=== PATIENT | male | born 1955 | race Hispanic/Latino ===

== ENCOUNTER 2019-12-19 11:28 | Emergency (ER) | payer BC, OTHER ==
[~2019-12-19] VITALS: Ht 167.6 cm; Wt 136.1 kg
--- OUTSIDE RECORDS SUMMARY | 2019-12-19 11:33 | XMS REPORT ---
Author Author [facility] Organization [facility] Address Unknown Phone Unavailable Care Team Providers Care Hog Scalder Name Role Phone Unavailable Unavailable Payers Payer Name Policy Type Policy Number Effective Date Expiration D ate Problems This patient has no known problems. Allergies, Adverse Reactions, Alerts Allergy Name Allergy Type Status Severity Reaction(s) Onset Date Inacti ve Date Treating Clinician Comments lisinopril DA Active U 2018-04-26 00:00:00 hydrochlorothiazide DA Active U 2018-04-26 00:00:00 simvastatin DA Active U 2018-04-26 00:00:00 atorvastatin DA Active U 2018-04-26 00:00:00 pioglitazone DA Active U 2018-04-26 00:00:00 No Known Allergies DA Active U 2012-11-07 00:00:00 Medications This patient has no known medications. Results Test Description Test Time Test Comments Text Results Atomic Results Result Comments GLUBED 2018-11-17 12:38:00 GLUBED (test code = GLUBED) 272 mg/dL 74-106 Perf ormed by certified tank wagon operator at [facility] [id number] 06:17:00* Test Item Value Reference Range Comments GLUBED (test code = GLUBED) 206 mg/dL 74-106 Perf ormed by certified tank wagon operator at [facility] [id number] 20:53:00* Test Item Value Reference Range Comments GLUBED (test code = GLUBED) 264 mg/dL 74-106 Perf ormed by certified tank wagon operator at [facility] [id number] 16:35:00* Test Item Value Reference Range Comments GLUBED (test code = GLUBED) 284 mg/dL 74-106 Perf ormed by certified tank wagon operator at [facility] [id number] 11:36:00* Test Item Value Reference Range Comments GLUBED (test code = GLUBED) 242 mg/dL 74-106 Perf ormed by certified tank wagon operator at [facility] [id number] 04:58:00* Test Item Value Reference Range Comments GLUBED (test code = GLUBED) 182 mg/dL 74-106 Perf ormed by certified tank wagon operator at [facility] [id number] 20:46:00* Test Item Value Reference Range Comments GLUBED (test code = GLUBED) 234 mg/dL 74-106 Perf ormed by certified tank wagon operator at [facility] [id number] 17:13:00* Test Item Value Reference Range Comments GLUBED (test code = GLUBED) 227 mg/dL 74-106 Perf ormed by certified tank wagon operator at [facility] [id number] 12:56:00* Test Item Value Reference Range Comments GLUBED (test code = GLUBED) 211 mg/dL 74-106 Perf ormed by certified tank wagon operator at [facility] [id number] 05:04:00* Test Item Value Reference Range Comments GLUBED (test code = GLUBED) 144 mg/dL 74-106 Perf ormed by certified tank wagon operator at [facility] [id number] 21:43:00* Test Item Value Reference Range Comments GLUBED (test code = GLUBED) 223 mg/dL 74-106 Perf ormed by certified tank wagon operator at [facility] [id number] 17:17:00* Test Item Value Reference Range Comments GLUBED (test code = GLUBED) 183 mg/dL 74-106 Perf ormed by certified tank wagon operator at [facility] [id number] 12:40:00* Test Item Value Reference Range Comments GLUBED (test code = GLUBED) 208 mg/dL 74-106 Perf ormed by certified tank wagon operator at [facility] [id number] 05:10:00* Test Item Value Reference Range Comments GLUBED (test code = GLUBED) 172 mg/dL 74-106 Perf ormed by certified tank wagon operator at [facility] [id number] 23:33:00* Test Item Value Reference Range Comments GLUBED (test code = GLUBED) 204 mg/dL 74-106 Perf ormed by certified tank wagon operator at [facility] [id number] 17:30:00* Test Item Value Reference Range Comments GLUBED (test code = GLUBED) 244 mg/dL 74-106 Perf ormed by certified tank wagon operator at [facility] [id number] 12:29:00* Test Item Value Reference Range Comments GLUBED (test code = GLUBED) 205 mg/dL 74-106 Perf ormed by certified tank wagon operator at [facility] [id number] 05:28:00* Test Item Value Reference Range Comments GLUBED (test code = GLUBED) 185 mg/dL 74-106 Perf ormed by certified tank wagon operator at [facility] BASIC METABOLIC [id number] 05:04:00* Test Item Value Reference Range Comments SODIUM (test code = NA) 141 mmol/L 136-145 POTASSIUM (test code = K) 3.9 mmol/L 3.5-5.1 CHLORIDE (test code = CL) 101.0 mmol/L 98-107 CARBON DIOXIDE (test code = CO2) 35.0 mmol/L 21-32 ANION GAP (test code = GAP) 8.9 10-20 GLUCOSE (test code = GLU) 221 mg/dL 74-106 BLOOD UREA NITROGEN (test code = BUN) 17 mg/dL 7-18 GLOMERULAR FILTRATION RATE (test code = GFR) 55 mL/min >=6 0 Estimated GFR by using Modified MDRD formula.Chronic kidney disease is defined as either kidney damageor GFR <60 mL/min/1.73 m2 for >3 months. CREATININE (test code = CREAT) 1.30 mg/dL 0.7-1.3 BUN/CREATININE RATIO (test code = BUN/CREA) 13.1 10-2 0 CALCIUM (test code = CA) 8.5 mg/dL 8.5-10.1 BASIC METABOLIC [id number] 04:55:00* Test Item Value Reference Range Comments SODIUM (test code = NA) 141 mmol/L 136-145 POTASSIUM (test code = K) 3.9 mmol/L 3.5-5.1 CHLORIDE (test code = CL) 101.0 mmol/L 98-107 CARBON DIOXIDE (test code = CO2) mmol/L 21-32 ANION GAP (test code = GAP) 10-20 GLUCOSE (test code = GLU) mg/dL 74-106 BLOOD UREA NITROGEN (test code = BUN) mg/dL 7-18 GLOMERULAR FILTRATION RATE (test code = GFR) mL/min >=6 0 CREATININE (test code = CREAT) mg/dL 0.7-1.3 BUN/CREATININE RATIO (test code = BUN/CREA) 10-2 0 CALCIUM (test code = CA) mg/dL 8.5-10.1 [id number] 20:20:00* Test Item Value Reference Range Comments GLUBED (test code = GLUBED) 219 mg/dL 74-106 Perf ormed by certified tank wagon operator at [facility] [id number] 15:36:00* Test Item Value Reference Range Comments GLUBED (test code = GLUBED) 193 mg/dL 74-106 Perf ormed by certified tank wagon operator at [facility] [id number] 12:24:00* Test Item Value Reference Range Comments GLUBED (test code = GLUBED) 171 mg/dL 74-106 Perf ormed by certified tank wagon operator at [facility] CBC W/AUTO [id number] 08:01:00* Test Item Value Reference Range Comments WHITE BLOOD CELL (test code = WBC) 8.4 K/mm3 4.5-12.5 RED BLOOD CELL (test code = RBC) 4.58 mill/mm3 4.0-5.8 HEMOGLOBIN (test code = HGB) 10.8 gram/dL 13.0-17.5 HEMATOCRIT (test code = HCT) 40.5 % 42.0-52.0 MEAN CELL VOLUME (test code = MCV) 88.4 fL 80-98 MEAN CELL HGB (test code = MCH) 23.6 picogram 27.0-33.0 MEAN CELL HGB CONCETRATION (test code = MCHC) 26.7 gram/dL 33 .0-36.0 RED CELL DISTRIBUTION WIDTH (test code = RDW) 18.6 % 11 .6-16.2 RED CELL DISTRIBUTION WIDTH SD (test code = RDW-SD) 59.5 fL 37.0-51.0 PLATELET COUNT (test code = PLT) 224 K/mm3 150-450 MEAN PLATELET VOLUME (test code = MPV) 10.2 fL 6.7-11.0 NEUTROPHIL % (test code = NT%) 59.4 % 39.0-69.0 IMMATURE GRANULOCYTE % (test code = IG%) 0.4 % 0.0-5.0 LYMPHOCYTE % (test code = LY%) 24.5 % 25.0-55.0 MONOCYTE % (test code = MO%) 9.8 % 0.0-10.0 EOSINOPHIL % (test code = EO%) 5.5 % 0.0-5.0 BASOPHIL % (test code = BA%) 0.4 % 0.0-1.0 NUCLEATED RBC % (test code = NRBC%) 0.0 % 0-0 NEUTROPHIL # (test code = NT#) 5.02 K/mm3 1.8-7.7 IMMATURE GRANULOCYTE # (test code = IG#) 0.03 x10 3/uL 0-0.03 LYMPHOCYTE # (test code = LY#) 2.07 K/mm3 1.0-5.0 MONOCYTE # (test code = MO#) 0.83 K/mm3 0-0.8 EOSINOPHIL # (test code = EO#) 0.46 K/mm3 0.0-0.5 BASOPHIL # (test code = BA#) 0.03 K/mm3 0.0-0.2 NUCLEATED RBC # (test code = NRBC#) 0.00 K/mm3 0.0-0.1 MANUAL DIFF REQUIRED (test code = MDIFF) NO, ONLY SCAN NEEDED DIFFERENTIAL [id number] 08:01:00* Test Item Value Reference Range Comments STAIN ACCEPTABILITY (test code = STN ACCEPTABLE) STAIN ACCEPTABL E ANISOCYTOSIS (test code = ANISO) 1+ PLATELET ESTIMATE (test code = PLTEST) ADEQUATE PLATELET MORPHOLOGY (test code = PLTMORPH) CLUMPING PRESENT [id number] 07:21:00* Test Item Value Reference Range Comments PHOSPHORUS (test code = PHOS) 3.2 mg/dL 2.5-4.9 [id number] 07:21:00* Test Item Value Reference Range Comments MAGNESIUM (test code = MAG) 1.9 mg/dL 1.8-2.4 BASIC METABOLIC [id number] 07:21:00* Test Item Value Reference Range Comments SODIUM (test code = NA) 142 mmol/L 136-145 POTASSIUM (test code = K) 3.9 mmol/L 3.5-5.1 CHLORIDE (test code = CL) 102.0 mmol/L 98-107 CARBON DIOXIDE (test code = CO2) 32.0 mmol/L 21-32 ANION GAP (test code = GAP) 11.9 10-20 GLUCOSE (test code = GLU) 129 mg/dL 74-106 BLOOD UREA NITROGEN (test code = BUN) 16 mg/dL 7-18 GLOMERULAR FILTRATION RATE (test code = GFR) > 60 mL/min >=6 0 Estimated GFR by using Modified MDRD formula.Chronic kidney disease is defined as either kidney damageor GFR <60 mL/min/1.73 m2 for >3 months. CREATININE (test code = CREAT) 1.20 mg/dL 0.7-1.3 BUN/CREATININE RATIO (test code = BUN/CREA) 13.3 10-2 0 CALCIUM (test code = CA) 8.3 mg/dL 8.5-10.1 [id number] 07:17:00* Test Item Value Reference Range Comments PHOSPHORUS (test code = PHOS) mg/dL 2.5-4.9 [id number] 07:17:00* Test Item Value Reference Range Comments MAGNESIUM (test code = MAG) 1.9 mg/dL 1.8-2.4 BASIC METABOLIC [id number] 07:13:00* Test Item Value Reference Range Comments SODIUM (test code = NA) 142 mmol/L 136-145 POTASSIUM (test code = K) 3.9 mmol/L 3.5-5.1 CHLORIDE (test code = CL) 102.0 mmol/L 98-107 CARBON DIOXIDE (test code = CO2) mmol/L 21-32 ANION GAP (test code = GAP) 10-20 GLUCOSE (test code = GLU) mg/dL 74-106 BLOOD UREA NITROGEN (test code = BUN) mg/dL 7-18 GLOMERULAR FILTRATION RATE (test code = GFR) mL/min >=6 0 CREATININE (test code = CREAT) mg/dL 0.7-1.3 BUN/CREATININE RATIO (test code = BUN/CREA) 10-2 0 CALCIUM (test code = CA) mg/dL 8.5-10.1 CBC W/AUTO [id number] 06:54:00* Test Item Value Reference Range Comments WHITE BLOOD CELL (test code = WBC) 8.4 K/mm3 4.5-12.5 RED BLOOD CELL (test code = RBC) 4.58 mill/mm3 4.0-5.8 HEMOGLOBIN (test code = HGB) 10.8 gram/dL 13.0-17.5 HEMATOCRIT (test code = HCT) 40.5 % 42.0-52.0 MEAN CELL VOLUME (test code = MCV) 88.4 fL 80-98 MEAN CELL HGB (test code = MCH) 23.6 picogram 27.0-33.0 MEAN CELL HGB CONCETRATION (test code = MCHC) 26.7 gram/dL 33 .0-36.0 RED CELL DISTRIBUTION WIDTH (test code = RDW) 18.6 % 11 .6-16.2 RED CELL DISTRIBUTION WIDTH SD (test code = RDW-SD) 59.5 fL 37.0-51.0 PLATELET COUNT (test code = PLT) 224 K/mm3 150-450 MEAN PLATELET VOLUME (test code = MPV) 10.2 fL 6.7-11.0 NEUTROPHIL % (test code = NT%) 59.4 % 39.0-69.0 IMMATURE GRANULOCYTE % (test code = IG%) 0.4 % 0.0-5.0 LYMPHOCYTE % (test code = LY%) 24.5 % 25.0-55.0 MONOCYTE % (test code = MO%) 9.8 % 0.0-10.0 EOSINOPHIL % (test code = EO%) 5.5 % 0.0-5.0 BASOPHIL % (test code = BA%) 0.4 % 0.0-1.0 NUCLEATED RBC % (test code = NRBC%) 0.0 % 0-0 NEUTROPHIL # (test code = NT#) 5.02 K/mm3 1.8-7.7 IMMATURE GRANULOCYTE # (test code = IG#) 0.03 x10 3/uL 0-0.03 LYMPHOCYTE # (test code = LY#) 2.07 K/mm3 1.0-5.0 MONOCYTE # (test code = MO#) 0.83 K/mm3 0-0.8 EOSINOPHIL # (test code = EO#) 0.46 K/mm3 0.0-0.5 BASOPHIL # (test code = BA#) 0.03 K/mm3 0.0-0.2 NUCLEATED RBC # (test code = NRBC#) 0.00 K/mm3 0.0-0.1 MANUAL DIFF REQUIRED (test code = MDIFF) NO, ONLY SCAN NEEDED DIFFERENTIAL [id number] 06:54:00* Test Item Value Reference Range Comments STAIN ACCEPTABILITY (test code = STN ACCEPTABLE) CABOT RINGS (test code = CAB) MORPHOLOGY COMMENT (test code = MOC) PLATELET ESTIMATE (test code = PLTEST) PLATELET MORPHOLOGY (test code = PLTMORPH) CBC W/AUTO [id number] 06:54:00* Test Item Value Reference Range Comments WHITE BLOOD CELL (test code = WBC) 8.4 K/mm3 4.5-12.5 RED BLOOD CELL (test code = RBC) 4.58 mill/mm3 4.0-5.8 HEMOGLOBIN (test code = HGB) 10.8 gram/dL 13.0-17.5 HEMATOCRIT (test code = HCT) 40.5 % 42.0-52.0 MEAN CELL VOLUME (test code = MCV) 88.4 fL 80-98 MEAN CELL HGB (test code = MCH) 23.6 picogram 27.0-33.0 MEAN CELL HGB CONCETRATION (test code = MCHC) 26.7 gram/dL 33 .0-36.0 RED CELL DISTRIBUTION WIDTH (test code = RDW) 18.6 % 11 .6-16.2 RED CELL DISTRIBUTION WIDTH SD (test code = RDW-SD) 59.5 fL 37.0-51.0 PLATELET COUNT (test code = PLT) 224 K/mm3 150-450 MEAN PLATELET VOLUME (test code = MPV) 10.2 fL 6.7-11.0 NEUTROPHIL % (test code = NT%) 59.4 % 39.0-69.0 IMMATURE GRANULOCYTE % (test code = IG%) 0.4 % 0.0-5.0 LYMPHOCYTE % (test code = LY%) 24.5 % 25.0-55.0 MONOCYTE % (test code = MO%) 9.8 % 0.0-10.0 EOSINOPHIL % (test code = EO%) 5.5 % 0.0-5.0 BASOPHIL % (test code = BA%) 0.4 % 0.0-1.0 NUCLEATED RBC % (test code = NRBC%) 0.0 % 0-0 NEUTROPHIL # (test code = NT#) 5.02 K/mm3 1.8-7.7 IMMATURE GRANULOCYTE # (test code = IG#) 0.03 x10 3/uL 0-0.03 LYMPHOCYTE # (test code = LY#) 2.07 K/mm3 1.0-5.0 MONOCYTE # (test code = MO#) 0.83 K/mm3 0-0.8 EOSINOPHIL # (test code = EO#) 0.46 K/mm3 0.0-0.5 BASOPHIL # (test code = BA#) 0.03 K/mm3 0.0-0.2 NUCLEATED RBC # (test code = NRBC#) 0.00 K/mm3 0.0-0.1 MANUAL DIFF REQUIRED (test code = MDIFF) NO, ONLY SCAN NEEDED DIFFERENTIAL [id number] 06:54:00* Test Item Value Reference Range Comments STAIN ACCEPTABILITY (test code = STN ACCEPTABLE) CABOT RINGS (test code = CAB) MORPHOLOGY COMMENT (test code = MOC) PLATELET ESTIMATE (test code = PLTEST) PLATELET MORPHOLOGY (test code = PLTMORPH) CBC W/AUTO [id number] 06:54:00* Test Item Value Reference Range Comments WHITE BLOOD CELL (test code = WBC) 8.4 K/mm3 4.5-12.5 RED BLOOD CELL (test code = RBC) 4.58 mill/mm3 4.0-5.8 HEMOGLOBIN (test code = HGB) 10.8 gram/dL 13.0-17.5 HEMATOCRIT (test code = HCT) 40.5 % 42.0-52.0 MEAN CELL VOLUME (test code = MCV) 88.4 fL 80-98 MEAN CELL HGB (test code = MCH) 23.6 picogram 27.0-33.0 MEAN CELL HGB CONCETRATION (test code = MCHC) 26.7 gram/dL 33 .0-36.0 RED CELL DISTRIBUTION WIDTH (test code = RDW) 18.6 % 11 .6-16.2 RED CELL DISTRIBUTION WIDTH SD (test code = RDW-SD) 59.5 fL 37.0-51.0 PLATELET COUNT (test code = PLT) 224 K/mm3 150-450 MEAN PLATELET VOLUME (test code = MPV) 10.2 fL 6.7-11.0 NEUTROPHIL % (test code = NT%) 59.4 % 39.0-69.0 IMMATURE GRANULOCYTE % (test code = IG%) 0.4 % 0.0-5.0 LYMPHOCYTE % (test code = LY%) 24.5 % 25.0-55.0 MONOCYTE % (test code = MO%) 9.8 % 0.0-10.0 EOSINOPHIL % (test code = EO%) 5.5 % 0.0-5.0 BASOPHIL % (test code = BA%) 0.4 % 0.0-1.0 NUCLEATED RBC % (test code = NRBC%) 0.0 % 0-0 NEUTROPHIL # (test code = NT#) 5.02 K/mm3 1.8-7.7 IMMATURE GRANULOCYTE # (test code = IG#) 0.03 x10 3/uL 0-0.03 LYMPHOCYTE # (test code = LY#) 2.07 K/mm3 1.0-5.0 MONOCYTE # (test code = MO#) 0.83 K/mm3 0-0.8 EOSINOPHIL # (test code = EO#) 0.46 K/mm3 0.0-0.5 BASOPHIL # (test code = BA#) 0.03 K/mm3 0.0-0.2 NUCLEATED RBC # (test code = NRBC#) 0.00 K/mm3 0.0-0.1 MANUAL DIFF REQUIRED (test code = MDIFF) NO, ONLY SCAN NEEDED DIFFERENTIAL [id number] 06:54:00* Test Item Value Reference Range Comments STAIN ACCEPTABILITY (test code = STN ACCEPTABLE) MORPHOLOGY COMMENT (test code = MOC) PLATELET ESTIMATE (test code = PLTEST) PLATELET MORPHOLOGY (test code = PLTMORPH) CBC W/AUTO [id number] 06:54:00* Test Item Value Reference Range Comments WHITE BLOOD CELL (test code = WBC) 8.4 K/mm3 4.5-12.5 RED BLOOD CELL (test code = RBC) 4.58 mill/mm3 4.0-5.8 HEMOGLOBIN (test code = HGB) 10.8 gram/dL 13.0-17.5 HEMATOCRIT (test code = HCT) 40.5 % 42.0-52.0 MEAN CELL VOLUME (test code = MCV) 88.4 fL 80-98 MEAN CELL HGB (test code = MCH) 23.6 picogram 27.0-33.0 MEAN CELL HGB CONCETRATION (test code = MCHC) 26.7 gram/dL 33 .0-36.0 RED CELL DISTRIBUTION WIDTH (test code = RDW) 18.6 % 11 .6-16.2 RED CELL DISTRIBUTION WIDTH SD (test code = RDW-SD) 59.5 fL 37.0-51.0 PLATELET COUNT (test code = PLT) 224 K/mm3 150-450 MEAN PLATELET VOLUME (test code = MPV) 10.2 fL 6.7-11.0 NEUTROPHIL % (test code = NT%) 59.4 % 39.0-69.0 IMMATURE GRANULOCYTE % (test code = IG%) 0.4 % 0.0-5.0 LYMPHOCYTE % (test code = LY%) 24.5 % 25.0-55.0 MONOCYTE % (test code = MO%) 9.8 % 0.0-10.0 EOSINOPHIL % (test code = EO%) 5.5 % 0.0-5.0 BASOPHIL % (test code = BA%) 0.4 % 0.0-1.0 NUCLEATED RBC % (test code = NRBC%) 0.0 % 0-0 NEUTROPHIL # (test code = NT#) 5.02 K/mm3 1.8-7.7 IMMATURE GRANULOCYTE # (test code = IG#) 0.03 x10 3/uL 0-0.03 LYMPHOCYTE # (test code = LY#) 2.07 K/mm3 1.0-5.0 MONOCYTE # (test code = MO#) 0.83 K/mm3 0-0.8 EOSINOPHIL # (test code = EO#) 0.46 K/mm3 0.0-0.5 BASOPHIL # (test code = BA#) 0.03 K/mm3 0.0-0.2 NUCLEATED RBC # (test code = NRBC#) 0.00 K/mm3 0.0-0.1 MANUAL DIFF REQUIRED (test code = MDIFF) NO, ONLY SCAN NEEDED DIFFERENTIAL [id number] 06:54:00* Test Item Value Reference Range Comments STAIN ACCEPTABILITY (test code = STN ACCEPTABLE) CABOT RINGS (test code = CAB) MORPHOLOGY COMMENT (test code = MOC) PLATELET ESTIMATE (test code = PLTEST) PLATELET MORPHOLOGY (test code = PLTMORPH) [id number] 05:06:00* Test Item Value Reference Range Comments GLUBED (test code = GLUBED) 119 mg/dL 74-106 Perf ormed by certified tank wagon operator at [facility] [id number] 21:15:00* Test Item Value Reference Range Comments GLUBED (test code = GLUBED) 211 mg/dL 74-106 Perf ormed by certified tank wagon operator at [facility] [id number] 16:30:00* Test Item Value Reference Range Comments GLUBED (test code = GLUBED) 193 mg/dL 74-106 Perf ormed by certified tank wagon operator at [facility] [id number] 15:05:00* Test Item Value Reference Range Comments GLUBED (test code = GLUBED) 168 mg/dL 74-106 Perf ormed by certified tank wagon operator at [facility] BASIC METABOLIC [id number] 07:06:00* Test Item Value Reference Range Comments SODIUM (test code = NA) 141 mmol/L 136-145 POTASSIUM (test code = K) 3.6 mmol/L 3.5-5.1 CHLORIDE (test code = CL) 104.0 mmol/L 98-107 CARBON DIOXIDE (test code = CO2) 33.0 mmol/L 21-32 ANION GAP (test code = GAP) 7.6 10-20 GLUCOSE (test code = GLU) 131 mg/dL 74-106 BLOOD UREA NITROGEN (test code = BUN) 17 mg/dL 7-18 GLOMERULAR FILTRATION RATE (test code = GFR) > 60 mL/min >=6 0 Estimated GFR by using Modified MDRD formula.Chronic kidney disease is defined as either kidney damageor GFR <60 mL/min/1.73 m2 for >3 months. CREATININE (test code = CREAT) 1.10 mg/dL 0.7-1.3 BUN/CREATININE RATIO (test code = BUN/CREA) 15.5 10-2 0 CALCIUM (test code = CA) 8.3 mg/dL 8.5-10.1 BASIC METABOLIC [id number] 06:58:00* Test Item Value Reference Range Comments SODIUM (test code = NA) 141 mmol/L 136-145 POTASSIUM (test code = K) 3.6 mmol/L 3.5-5.1 CHLORIDE (test code = CL) 104.0 mmol/L 98-107 CARBON DIOXIDE (test code = CO2) mmol/L 21-32 ANION GAP (test code = GAP) 10-20 GLUCOSE (test code = GLU) mg/dL 74-106 BLOOD UREA NITROGEN (test code = BUN) mg/dL 7-18 GLOMERULAR FILTRATION RATE (test code = GFR) mL/min >=6 0 CREATININE (test code = CREAT) mg/dL 0.7-1.3 BUN/CREATININE RATIO (test code = BUN/CREA) 10-2 0 CALCIUM (test code = CA) mg/dL 8.5-10.1 [id number] 05:00:00* Test Item Value Reference Range Comments GLUBED (test code = GLUBED) 107 mg/dL 74-106 Perf ormed by certified tank wagon operator at [facility] [id number] 21:13:00* Test Item Value Reference Range Comments GLUBED (test code = GLUBED) 224 mg/dL 74-106 Perf ormed by certified tank wagon operator at [facility] [id number] 15:45:00* Test Item Value Reference Range Comments GLUBED (test code = GLUBED) 229 mg/dL 74-106 Perf ormed by certified tank wagon operator at [facility] [id number] 12:18:00* Test Item Value Reference Range Comments GLUBED (test code = GLUBED) 211 mg/dL 74-106 Perf ormed by certified tank wagon operator at [facility] BASIC METABOLIC [id number] 06:16:00* Test Item Value Reference Range Comments SODIUM (test code = NA) 142 mmol/L 136-145 POTASSIUM (test code = K) 3.6 mmol/L 3.5-5.1 CHLORIDE (test code = CL) 104.0 mmol/L 98-107 CARBON DIOXIDE (test code = CO2) 33.0 mmol/L 21-32 ANION GAP (test code = GAP) 8.6 10-20 GLUCOSE (test code = GLU) 132 mg/dL 74-106 BLOOD UREA NITROGEN (test code = BUN) 19 mg/dL 7-18 GLOMERULAR FILTRATION RATE (test code = GFR) > 60 mL/min >=6 0 Estimated GFR by using Modified MDRD formula.Chronic kidney disease is defined as either kidney damageor GFR <60 mL/min/1.73 m2 for >3 months. CREATININE (test code = CREAT) 1.20 mg/dL 0.7-1.3 BUN/CREATININE RATIO (test code = BUN/CREA) 15.8 10-2 0 CALCIUM (test code = CA) 8.2 mg/dL 8.5-10.1 [id number] 06:16:00* Test Item Value Reference Range Comments PHOSPHORUS (test code = PHOS) 2.7 mg/dL 2.5-4.9 [id number] 06:16:00* Test Item Value Reference Range Comments MAGNESIUM (test code = MAG) 1.9 mg/dL 1.8-2.4 BASIC METABOLIC [id number] 06:06:00* Test Item Value Reference Range Comments SODIUM (test code = NA) 142 mmol/L 136-145 POTASSIUM (test code = K) 3.6 mmol/L 3.5-5.1 CHLORIDE (test code = CL) 104.0 mmol/L 98-107 CARBON DIOXIDE (test code = CO2) mmol/L 21-32 ANION GAP (test code = GAP) 10-20 GLUCOSE (test code = GLU) mg/dL 74-106 BLOOD UREA NITROGEN (test code = BUN) mg/dL 7-18 GLOMERULAR FILTRATION RATE (test code = GFR) mL/min >=6 0 CREATININE (test code = CREAT) mg/dL 0.7-1.3 BUN/CREATININE RATIO (test code = BUN/CREA) 10-2 0 CALCIUM (test code = CA) mg/dL 8.5-10.1 [id number] 06:06:00* Test Item Value Reference Range Comments PHOSPHORUS (test code = PHOS) mg/dL 2.5-4.9 [id number] 06:06:00* Test Item Value Reference Range Comments MAGNESIUM (test code = MAG) mg/dL 1.8-2.4 [id number] 05:41:00* Test Item Value Reference Range Comments GLUBED (test code = GLUBED) 133 mg/dL 74-106 Perf ormed by certified tank wagon operator at [facility] [id number] 20:46:00* Test Item Value Reference Range Comments GLUBED (test code = GLUBED) 193 mg/dL 74-106 Perf ormed by certified tank wagon operator at [facility] [id number] 17:57:00* Test Item Value Reference Range Comments GLUBED (test code = GLUBED) 208 mg/dL 74-106 Perf ormed by certified tank wagon operator at [facility] [id number] 13:31:00* Test Item Value Reference Range Comments GLUBED (test code = GLUBED) 158 mg/dL 74-106 Perf ormed by certified tank wagon operator at [facility] [id number] 07:52:00* Test Item Value Reference Range Comments GLUBED (test code = GLUBED) 125 mg/dL 74-106 Perf ormed by certified tank wagon operator at [facility] - XR CHEST 1 [id number] 07:49:00 FAX: Roland Pinedo MD [phone] [place]: St: ADM FAX: Pacheco Hill MD FAX: Andressa Shaw NP [phone] Name: LIAT KEYES [facility] : 1955 Age/S: 63/M [address] [facility] Unit #: [id number] Loc: [address] [address] Phys: Andressa Lyn NP Acct: [id number] Dis Date: Status: ADM IN PH ONE #: [phone] Exam Date: 11/09/2018 0517 FAX #: [phone] Reason: respiratory failure EXAMS: CPT CODE: [id number] XR CHEST 1 V [id number] EXAM: Chest x- ray, one view; INFORMATION: Respiratory failure; I MPRESSION: 1. Interim extubation and removal of an NG tube. 2. The right lung base is slightly better aerated. 2. No further changes; persistent mild basilar atelectatic changes and mild cardiomegaly. at 0749 Reported and signed by: Avi Phan M.D. CC: Roland Jacobson MD; Pacheco Almazan; Andressa Lyn NP Technologist: Clare Collazo RT(R); Teresa Osborne Trnscrd Date/Time/By: 11/09/2018 (0749) : By: t.S Orig Print D/T: S: 11/09/2018 (0753) LEX HUNT 1 Signed Report CBC W/AUTO [id number] 07:25:00* Test Item Value Reference Range Comments WHITE BLOOD CELL (test code = WBC) 9.9 K/mm3 4.5-12.5 RED BLOOD CELL (test code = RBC) 4.49 mill/mm3 4.0-5.8 HEMOGLOBIN (test code = HGB) 11.0 gram/dL 13.0-17.5 HEMATOCRIT (test code = HCT) 38.9 % 42.0-52.0 MEAN CELL VOLUME (test code = MCV) 86.6 fL 80-98 MEAN CELL HGB (test code = MCH) 24.5 picogram 27.0-33.0 MEAN CELL HGB CONCETRATION (test code = MCHC) 28.3 gram/dL 33 .0-36.0 RED CELL DISTRIBUTION WIDTH (test code = RDW) 19.1 % 11 .6-16.2 RED CELL DISTRIBUTION WIDTH SD (test code = RDW-SD) 58.5 fL 37.0-51.0 PLATELET COUNT (test code = PLT) 219 K/mm3 150-450 MEAN PLATELET VOLUME (test code = MPV) 10.6 fL 6.7-11.0 NEUTROPHIL % (test code = NT%) 64.3 % 39.0-69.0 IMMATURE GRANULOCYTE % (test code = IG%) 0.3 % 0.0-5.0 LYMPHOCYTE % (test code = LY%) 21.0 % 25.0-55.0 MONOCYTE % (test code = MO%) 11.0 % 0.0-10.0 EOSINOPHIL % (test code = EO%) 3.2 % 0.0-5.0 BASOPHIL % (test code = BA%) 0.2 % 0.0-1.0 NUCLEATED RBC % (test code = NRBC%) 0.2 % 0-0 NEUTROPHIL # (test code = NT#) 6.38 K/mm3 1.8-7.7 IMMATURE GRANULOCYTE # (test code = IG#) 0.03 x10 3/uL 0-0.03 LYMPHOCYTE # (test code = LY#) 2.08 K/mm3 1.0-5.0 MONOCYTE # (test code = MO#) 1.09 K/mm3 0-0.8 EOSINOPHIL # (test code = EO#) 0.32 K/mm3 0.0-0.5 BASOPHIL # (test code = BA#) 0.02 K/mm3 0.0-0.2 NUCLEATED RBC # (test code = NRBC#) 0.02 K/mm3 0.0-0.1 MANUAL DIFF REQUIRED (test code = MDIFF) NO, ONLY SCAN NEEDED DIFFERENTIAL [id number] 07:25:00* Test Item Value Reference Range Comments STAIN ACCEPTABILITY (test code = STN ACCEPTABLE) STAIN ACCEPTABL E POLYCHROMASIA (test code = POLC) 1+ POIKILOCYTOSIS (test code = POIK) 1+ ANISOCYTOSIS (test code = ANISO) 1+ MICROCYTOSIS (test code = MICR) 1+ MACROCYTOSIS (test code = MACR) 1+ SPHEROCYTES (test code = SPH) 1+ PLATELET ESTIMATE (test code = PLTEST) ADEQUATE PLATELET MORPHOLOGY (test code = PLTMORPH) NORMAL CBC W/AUTO [id number] 06:17:00* Test Item Value Reference Range Comments WHITE BLOOD CELL (test code = WBC) 9.9 K/mm3 4.5-12.5 RED BLOOD CELL (test code = RBC) 4.49 mill/mm3 4.0-5.8 HEMOGLOBIN (test code = HGB) 11.0 gram/dL 13.0-17.5 HEMATOCRIT (test code = HCT) 38.9 % 42.0-52.0 MEAN CELL VOLUME (test code = MCV) 86.6 fL 80-98 MEAN CELL HGB (test code = MCH) 24.5 picogram 27.0-33.0 MEAN CELL HGB CONCETRATION (test code = MCHC) 28.3 gram/dL 33 .0-36.0 RED CELL DISTRIBUTION WIDTH (test code = RDW) 19.1 % 11 .6-16.2 RED CELL DISTRIBUTION WIDTH SD (test code = RDW-SD) 58.5 fL 37.0-51.0 PLATELET COUNT (test code = PLT) 219 K/mm3 150-450 MEAN PLATELET VOLUME (test code = MPV) 10.6 fL 6.7-11.0 NEUTROPHIL % (test code = NT%) 64.3 % 39.0-69.0 IMMATURE GRANULOCYTE % (test code = IG%) 0.3 % 0.0-5.0 LYMPHOCYTE % (test code = LY%) 21.0 % 25.0-55.0 MONOCYTE % (test code = MO%) 11.0 % 0.0-10.0 EOSINOPHIL % (test code = EO%) 3.2 % 0.0-5.0 BASOPHIL % (test code = BA%) 0.2 % 0.0-1.0 NUCLEATED RBC % (test code = NRBC%) 0.2 % 0-0 NEUTROPHIL # (test code = NT#) 6.38 K/mm3 1.8-7.7 IMMATURE GRANULOCYTE # (test code = IG#) 0.03 x10 3/uL 0-0.03 LYMPHOCYTE # (test code = LY#) 2.08 K/mm3 1.0-5.0 MONOCYTE # (test code = MO#) 1.09 K/mm3 0-0.8 EOSINOPHIL # (test code = EO#) 0.32 K/mm3 0.0-0.5 BASOPHIL # (test code = BA#) 0.02 K/mm3 0.0-0.2 NUCLEATED RBC # (test code = NRBC#) 0.02 K/mm3 0.0-0.1 MANUAL DIFF REQUIRED (test code = MDIFF) NO, ONLY SCAN NEEDED DIFFERENTIAL [id number] 06:17:00* Test Item Value Reference Range Comments STAIN ACCEPTABILITY (test code = STN ACCEPTABLE) CABOT RINGS (test code = CAB) MORPHOLOGY COMMENT (test code = MOC) PLATELET ESTIMATE (test code = PLTEST) PLATELET MORPHOLOGY (test code = PLTMORPH) CBC W/AUTO [id number] 06:17:00* Test Item Value Reference Range Comments WHITE BLOOD CELL (test code = WBC) 9.9 K/mm3 4.5-12.5 RED BLOOD CELL (test code = RBC) 4.49 mill/mm3 4.0-5.8 HEMOGLOBIN (test code = HGB) 11.0 gram/dL 13.0-17.5 HEMATOCRIT (test code = HCT) 38.9 % 42.0-52.0 MEAN CELL VOLUME (test code = MCV) 86.6 fL 80-98 MEAN CELL HGB (test code = MCH) 24.5 picogram 27.0-33.0 MEAN CELL HGB CONCETRATION (test code = MCHC) 28.3 gram/dL 33 .0-36.0 RED CELL DISTRIBUTION WIDTH (test code = RDW) 19.1 % 11 .6-16.2 RED CELL DISTRIBUTION WIDTH SD (test code = RDW-SD) 58.5 fL 37.0-51.0 PLATELET COUNT (test code = PLT) 219 K/mm3 150-450 MEAN PLATELET VOLUME (test code = MPV) 10.6 fL 6.7-11.0 NEUTROPHIL % (test code = NT%) 64.3 % 39.0-69.0 IMMATURE GRANULOCYTE % (test code = IG%) 0.3 % 0.0-5.0 LYMPHOCYTE % (test code = LY%) 21.0 % 25.0-55.0 MONOCYTE % (test code = MO%) 11.0 % 0.0-10.0 EOSINOPHIL % (test code = EO%) 3.2 % 0.0-5.0 BASOPHIL % (test code = BA%) 0.2 % 0.0-1.0 NUCLEATED RBC % (test code = NRBC%) 0.2 % 0-0 NEUTROPHIL # (test code = NT#) 6.38 K/mm3 1.8-7.7 IMMATURE GRANULOCYTE # (test code = IG#) 0.03 x10 3/uL 0-0.03 LYMPHOCYTE # (test code = LY#) 2.08 K/mm3 1.0-5.0 MONOCYTE # (test code = MO#) 1.09 K/mm3 0-0.8 EOSINOPHIL # (test code = EO#) 0.32 K/mm3 0.0-0.5 BASOPHIL # (test code = BA#) 0.02 K/mm3 0.0-0.2 NUCLEATED RBC # (test code = NRBC#) 0.02 K/mm3 0.0-0.1 MANUAL DIFF REQUIRED (test code = MDIFF) NO, ONLY SCAN NEEDED DIFFERENTIAL [id number] 06:17:00* Test Item Value Reference Range Comments STAIN ACCEPTABILITY (test code = STN ACCEPTABLE) MORPHOLOGY COMMENT (test code = MOC) PLATELET ESTIMATE (test code = PLTEST) PLATELET MORPHOLOGY (test code = PLTMORPH) CBC W/AUTO [id number] 06:16:00* Test Item Value Reference Range Comments WHITE BLOOD CELL (test code = WBC) 9.9 K/mm3 4.5-12.5 RED BLOOD CELL (test code = RBC) 4.49 mill/mm3 4.0-5.8 HEMOGLOBIN (test code = HGB) 11.0 gram/dL 13.0-17.5 HEMATOCRIT (test code = HCT) 38.9 % 42.0-52.0 MEAN CELL VOLUME (test code = MCV) 86.6 fL 80-98 MEAN CELL HGB (test code = MCH) 24.5 picogram 27.0-33.0 MEAN CELL HGB CONCETRATION (test code = MCHC) 28.3 gram/dL 33 .0-36.0 RED CELL DISTRIBUTION WIDTH (test code = RDW) 19.1 % 11 .6-16.2 RED CELL DISTRIBUTION WIDTH SD (test code = RDW-SD) 58.5 fL 37.0-51.0 PLATELET COUNT (test code = PLT) 219 K/mm3 150-450 MEAN PLATELET VOLUME (test code = MPV) 10.6 fL 6.7-11.0 NEUTROPHIL % (test code = NT%) 64.3 % 39.0-69.0 IMMATURE GRANULOCYTE % (test code = IG%) 0.3 % 0.0-5.0 LYMPHOCYTE % (test code = LY%) 21.0 % 25.0-55.0 MONOCYTE % (test code = MO%) 11.0 % 0.0-10.0 EOSINOPHIL % (test code = EO%) 3.2 % 0.0-5.0 BASOPHIL % (test code = BA%) 0.2 % 0.0-1.0 NUCLEATED RBC % (test code = NRBC%) 0.2 % 0-0 NEUTROPHIL # (test code = NT#) 6.38 K/mm3 1.8-7.7 IMMATURE GRANULOCYTE # (test code = IG#) 0.03 x10 3/uL 0-0.03 LYMPHOCYTE # (test code = LY#) 2.08 K/mm3 1.0-5.0 MONOCYTE # (test code = MO#) 1.09 K/mm3 0-0.8 EOSINOPHIL # (test code = EO#) 0.32 K/mm3 0.0-0.5 BASOPHIL # (test code = BA#) 0.02 K/mm3 0.0-0.2 NUCLEATED RBC # (test code = NRBC#) 0.02 K/mm3 0.0-0.1 MANUAL DIFF REQUIRED (test code = MDIFF) NO, ONLY SCAN NEEDED DIFFERENTIAL [id number] 06:16:00* Test Item Value Reference Range Comments STAIN ACCEPTABILITY (test code = STN ACCEPTABLE) CABOT RINGS (test code = CAB) MORPHOLOGY COMMENT (test code = MOC) PLATELET ESTIMATE (test code = PLTEST) PLATELET MORPHOLOGY (test code = PLTMORPH) CBC W/AUTO [id number] 06:16:00* Test Item Value Reference Range Comments WHITE BLOOD CELL (test code = WBC) 9.9 K/mm3 4.5-12.5 RED BLOOD CELL (test code = RBC) 4.49 mill/mm3 4.0-5.8 HEMOGLOBIN (test code = HGB) 11.0 gram/dL 13.0-17.5 HEMATOCRIT (test code = HCT) 38.9 % 42.0-52.0 MEAN CELL VOLUME (test code = MCV) 86.6 fL 80-98 MEAN CELL HGB (test code = MCH) 24.5 picogram 27.0-33.0 MEAN CELL HGB CONCETRATION (test code = MCHC) 28.3 gram/dL 33 .0-36.0 RED CELL DISTRIBUTION WIDTH (test code = RDW) 19.1 % 11 .6-16.2 RED CELL DISTRIBUTION WIDTH SD (test code = RDW-SD) 58.5 fL 37.0-51.0 PLATELET COUNT (test code = PLT) 219 K/mm3 150-450 MEAN PLATELET VOLUME (test code = MPV) 10.6 fL 6.7-11.0 NEUTROPHIL % (test code = NT%) 64.3 % 39.0-69.0 IMMATURE GRANULOCYTE % (test code = IG%) 0.3 % 0.0-5.0 LYMPHOCYTE % (test code = LY%) 21.0 % 25.0-55.0 MONOCYTE % (test code = MO%) 11.0 % 0.0-10.0 EOSINOPHIL % (test code = EO%) 3.2 % 0.0-5.0 BASOPHIL % (test code = BA%) 0.2 % 0.0-1.0 NUCLEATED RBC % (test code = NRBC%) 0.2 % 0-0 NEUTROPHIL # (test code = NT#) 6.38 K/mm3 1.8-7.7 IMMATURE GRANULOCYTE # (test code = IG#) 0.03 x10 3/uL 0-0.03 LYMPHOCYTE # (test code = LY#) 2.08 K/mm3 1.0-5.0 MONOCYTE # (test code = MO#) 1.09 K/mm3 0-0.8 EOSINOPHIL # (test code = EO#) 0.32 K/mm3 0.0-0.5 BASOPHIL # (test code = BA#) 0.02 K/mm3 0.0-0.2 NUCLEATED RBC # (test code = NRBC#) 0.02 K/mm3 0.0-0.1 MANUAL DIFF REQUIRED (test code = MDIFF) NO, ONLY SCAN NEEDED DIFFERENTIAL [id number] 06:16:00* Test Item Value Reference Range Comments STAIN ACCEPTABILITY (test code = STN ACCEPTABLE) CABOT RINGS (test code = CAB) MORPHOLOGY COMMENT (test code = MOC) PLATELET ESTIMATE (test code = PLTEST) PLATELET MORPHOLOGY (test code = PLTMORPH) BASIC METABOLIC [id number] 06:07:00* Test Item Value Reference Range Comments SODIUM (test code = NA) 144 mmol/L 136-145 POTASSIUM (test code = K) 3.9 mmol/L 3.5-5.1 CHLORIDE (test code = CL) 105.0 mmol/L 98-107 CARBON DIOXIDE (test code = CO2) 35.0 mmol/L 21-32 ANION GAP (test code = GAP) 7.9 10-20 GLUCOSE (test code = GLU) 123 mg/dL 74-106 BLOOD UREA NITROGEN (test code = BUN) 30 mg/dL 7-18 GLOMERULAR FILTRATION RATE (test code = GFR) 51 mL/min >=6 0 Estimated GFR by using Modified MDRD formula.Chronic kidney disease is defined as either kidney damageor GFR <60 mL/min/1.73 m2 for >3 months. CREATININE (test code = CREAT) 1.40 mg/dL 0.7-1.3 BUN/CREATININE RATIO (test code = BUN/CREA) 21.4 10-2 0 CALCIUM (test code = CA) 8.1 mg/dL 8.5-10.1 BASIC METABOLIC [id number] 06:01:00* Test Item Value Reference Range Comments SODIUM (test code = NA) 144 mmol/L 136-145 POTASSIUM (test code = K) 3.9 mmol/L 3.5-5.1 CHLORIDE (test code = CL) 105.0 mmol/L 98-107 CARBON DIOXIDE (test code = CO2) mmol/L 21-32 ANION GAP (test code = GAP) 10-20 GLUCOSE (test code = GLU) mg/dL 74-106 BLOOD UREA NITROGEN (test code = BUN) mg/dL 7-18 GLOMERULAR FILTRATION RATE (test code = GFR) mL/min >=6 0 CREATININE (test code = CREAT) mg/dL 0.7-1.3 BUN/CREATININE RATIO (test code = BUN/CREA) 10-2 0 CALCIUM (test code = CA) mg/dL 8.5-10.1 [id number] 05:40:00* Test Item Value Reference Range Comments GLUBED (test code = GLUBED) 116 mg/dL 74-106 Perf ormed by certified tank wagon operator at [facility] [id number] 20:57:00* Test Item Value Reference Range Comments GLUBED (test code = GLUBED) 85 mg/dL 74-106 Perf ormed by certified tank wagon operator at [facility] [id number] 16:07:00* Test Item Value Reference Range Comments GLUBED (test code = GLUBED) 105 mg/dL 74-106 Perf ormed by certified tank wagon operator at [facility] [id number] 16:07:00* Test Item Value Reference Range Comments GLUBED (test code = GLUBED) 88 mg/dL 74-106 Perf ormed by certified tank wagon operator at [facility] ARTERIAL BLOOD [id number] 15:59:00* Test Item Value Reference Range Comments ARTERIAL BLOOD GAS PH (test code = PHA) 7.43 7.35-7.4 5 ARTERIAL BLOOD GAS PCO2 (test code = PCO2A) 47.2 mm Hg 35-4 5 ARTERIAL BLOOD GAS PO2 (test code = PO2A) 71.4 mmHg 80-100 BICARBONATE TOTAL HCO3 (test code = HCO3) 30.6 mmol/L 23.0-2 7.0 BASE EXCESS (test code = JENNIFER) 5.5 mmol/L -3.0-5.0 ABG O2 SATURATION (test code = SATA) 92.7 % 90.0-98.0 ABG TYPE (test code = TYPEA) Arterial FIO2 (test code = FIO2A) 50.0 ABG VENT MODE (test code = MODEA) Assist Control ABG PEEP (test code = PEEPA) 5.0 cmH2O ABG PRESSURE SUPPORT (test code = PSABG) 7 cmH2O ABG SITE (test code = SITEA) Rt RADIAL ARTERY HEMATOCRIT (test code = HCT/ABG) 36 % 42-52 TOTAL HGB (test code = THB) 12.3 gram/dL 13.0-17.5 HGB O2 SAT (test code = HBOSAT) 92.2 % 94.00-98.00 CARBOXYHEMOGLOBIN (test code = HOHGBT) 0.1 %totalHg 0.5-1.5 Results called to and read back by Jessica 15:58 - 11/08/2018; by [id number] METHEMOGLOBIN (test code = METHGB) 0.4 % 0.0-1.50 O2 CONTENT (test code = O2CT) 16.0 % vol 18.0-22.0 ARTERIAL BLOOD [id number] 14:22:00* Test Item Value Reference Range Comments ARTERIAL BLOOD GAS PH (test code = PHA) 7.47 7.35-7.4 5 ARTERIAL BLOOD GAS PCO2 (test code = PCO2A) 48.4 mm Hg 35-4 5 ARTERIAL BLOOD GAS PO2 (test code = PO2A) 62.3 mmHg 80-100 BICARBONATE TOTAL HCO3 (test code = HCO3) 34.4 mmol/L 23.0-2 7.0 BASE EXCESS (test code = JENNIFER) 9.5 mmol/L -3.0-5.0 Re sults called to and read back by [facility] 14:21 - 11/08/2018; by [id number] ABG O2 SATURATION (test code = SATA) 91.3 % 90.0-98.0 ABG TYPE (test code = TYPEA) Arterial FIO2 (test code = FIO2A) 50.0 ABG VENT MODE (test code = MODEA) Assist Control ABG VENT RESP RATE (test code = RRA) 18.0 per min ABG TIDAL VOLUME (test code = TVA) 460.0 mL ABG PEEP (test code = PEEPA) 5.0 cmH2O ABG SITE (test code = SITEA) Rt RADIAL ARTERY HEMATOCRIT (test code = HCT/ABG) 35 % 42-52 TOTAL HGB (test code = THB) 12.0 gram/dL 13.0-17.5 HGB O2 SAT (test code = HBOSAT) 91.0 % 94.00-98.00 CARBOXYHEMOGLOBIN (test code = HOHGBT) 0.0 %totalHg 0.5-1.5 Results called to and read back by Jessica 14:21 - 11/08/2018; by [id number] METHEMOGLOBIN (test code = METHGB) 0.3 % 0.0-1.50 O2 CONTENT (test code = O2CT) 15.4 % vol 18.0-22.0 - XR CHEST 1 [id number] 08:21:00 FAX: Roland Pinedo MD [phone] [place]: [address] St: ADM FAX: Debbi Silva MD [phone] FAX: [place]co [place] MD Name: LIAT KEYES [facility] : 1955 Age/S: 63/M [address] Unit #: [id number] Loc: V.S02 [place] [address] Phys: Debbi Lopez MD Acct: [id number] Dis Date: Status: ADM IN [facility] #: [phone] Exam Date: 11/08/2018807 FAX #: [phone] Reason: intubated EXAMS: CPT CODE: [id number] XR CHEST 1 V [id number] HISTORY: Intub ated. COMPARISON: Previous day. ET tube and NG tube are unchanged in position. ET tube is low-lying and could be retracted 3 t o 4 cm for better positioning. NG tube tip is not visible but appears to e xtend below the diaphragm. Small left effusion with bibasal subsegmental a telectasis. Congestion. Cardiomegaly. IMPRESSION: ET tube is low-lying and could be retracted 3 to 4 cm for better positioning. Small left effusion. Mild congestion. at 0821 Repor janeth and signed by: Michael Franks M.D. CC: Roland Jacobson MD; Debbi Lopez MD; Pacheco [place] Technologist: Aleisha Quintanilla(R) Trnscrd Date/Time/By: 11/08/2018 (820) : By: Katelyn R.TH4 Orig Print D/T: S: 11/08/2018 (0824) PAG E 1 Signed Report GLUBED 2018-11-08 07:37:00* Test Item Value Reference Range Comments GLUBED (test code = GLUBED) 85 mg/dL 74-106 Perf ormed by certified tank wagon operator at [facility] LIPID PROFILE (CORONARY RISK)2018-11-08 06:23:00* Test Item Value Reference Range Comments TRIGLYCERIDES (test code = TRIG) 109 mg/dL 20-150 CHOLESTEROL (test code = CHOL) 110 mg/dL 0-200 CHOLESTEROL/HDL RATIO (test code = CHOLHDL) 2.0 RATIO 0-4. 9 RISK ASSOCIATED WITH CHOL/HDL RATIOS: Risk Male Female1/2 AVERAGE 3.43 3.27AVERAGE 4.97 4.442X AVERAGE 9.55 7.053X AVERAGE 23.39 11.04 REFERENCE VALUE IS RELATED TO RISK LEVELS ASRECOMMENDED BY THE [facility]. HEART, LUNG, AND BLOOD INST. HDL CHOLESTEROL (test code = HDL) 39 mg/dL 40-60 LIPOPROTEIN LDL (test code = LDL) 63 mg/dL 100-129 Reference Interval: mg/dL mmol/L Optimal <100 <2.6Near/above optimal 100-129 2.6- 3.3Borderline High 130-159 3.4-4.1High 160-189 4.1-4.9Very High >=190 >=4.9========= This LDL result is a direct measurement.========= SPECIMEN COMMENTS: PLEASE ADD TO AM LABSBASIC METABOLIC [id number] 06:16:00 * Test Item Value Reference Range Comments SODIUM (test code = NA) 145 mmol/L 136-145 POTASSIUM (test code = K) 3.7 mmol/L 3.5-5.1 CHLORIDE (test code = CL) 105.0 mmol/L 98-107 CARBON DIOXIDE (test code = CO2) 35.0 mmol/L 21-32 ANION GAP (test code = GAP) 8.7 10-20 GLUCOSE (test code = GLU) 73 mg/dL 74-106 BLOOD UREA NITROGEN (test code = BUN) 37 mg/dL 7-18 GLOMERULAR FILTRATION RATE (test code = GFR) 44 mL/min >=6 0 Estimated GFR by using Modified MDRD formula.Chronic kidney disease is defined as either kidney damageor GFR <60 mL/min/1.73 m2 for >3 months. CREATININE (test code = CREAT) 1.60 mg/dL 0.7-1.3 BUN/CREATININE RATIO (test code = BUN/CREA) 23.1 10-2 0 CALCIUM (test code = CA) 8.2 mg/dL 8.5-10.1 BASIC METABOLIC [id number] 06:10:00* Test Item Value Reference Range Comments SODIUM (test code = NA) 145 mmol/L 136-145 POTASSIUM (test code = K) 3.7 mmol/L 3.5-5.1 CHLORIDE (test code = CL) 105.0 mmol/L 98-107 CARBON DIOXIDE (test code = CO2) mmol/L 21-32 ANION GAP (test code = GAP) 10-20 GLUCOSE (test code = GLU) mg/dL 74-106 BLOOD UREA NITROGEN (test code = BUN) mg/dL 7-18 GLOMERULAR FILTRATION RATE (test code = GFR) mL/min >=6 0 CREATININE (test code = CREAT) mg/dL 0.7-1.3 BUN/CREATININE RATIO (test code = BUN/CREA) 10-2 0 CALCIUM (test code = CA) mg/dL 8.5-10.1 CBC W/AUTO [id number] 06:09:00* Test Item Value Reference Range Comments WHITE BLOOD CELL (test code = WBC) 10.2 K/mm3 4.5-12.5 RED BLOOD CELL (test code = RBC) 4.46 mill/mm3 4.0-5.8 HEMOGLOBIN (test code = HGB) 11.1 gram/dL 13.0-17.5 HEMATOCRIT (test code = HCT) 38.0 % 42.0-52.0 MEAN CELL VOLUME (test code = MCV) 85.2 fL 80-98 RESULT VERIFIED BY REPEAT ANALYSIS MEAN CELL HGB (test code = MCH) 24.9 picogram 27.0-33.0 MEAN CELL HGB CONCETRATION (test code = MCHC) 29.2 gram/dL 33 .0-36.0 RED CELL DISTRIBUTION WIDTH (test code = RDW) 19.1 % 11 .6-16.2 RED CELL DISTRIBUTION WIDTH SD (test code = RDW-SD) 56.5 fL 37.0-51.0 PLATELET COUNT (test code = PLT) 199 K/mm3 150-450 MEAN PLATELET VOLUME (test code = MPV) 10.3 fL 6.7-11.0 NEUTROPHIL % (test code = NT%) 62.4 % 39.0-69.0 IMMATURE GRANULOCYTE % (test code = IG%) 0.5 % 0.0-5.0 LYMPHOCYTE % (test code = LY%) 26.2 % 25.0-55.0 MONOCYTE % (test code = MO%) 8.7 % 0.0-10.0 EOSINOPHIL % (test code = EO%) 2.0 % 0.0-5.0 BASOPHIL % (test code = BA%) 0.2 % 0.0-1.0 NUCLEATED RBC % (test code = NRBC%) 0.4 % 0-0 NEUTROPHIL # (test code = NT#) 6.37 K/mm3 1.8-7.7 IMMATURE GRANULOCYTE # (test code = IG#) 0.05 x10 3/uL 0-0.03 LYMPHOCYTE # (test code = LY#) 2.68 K/mm3 1.0-5.0 MONOCYTE # (test code = MO#) 0.89 K/mm3 0-0.8 EOSINOPHIL # (test code = EO#) 0.20 K/mm3 0.0-0.5 BASOPHIL # (test code = BA#) 0.02 K/mm3 0.0-0.2 NUCLEATED RBC # (test code = NRBC#) 0.04 K/mm3 0.0-0.1 MANUAL DIFF REQUIRED (test code = MDIFF) NO, ONLY SCAN NEEDED DIFFERENTIAL [id number] 06:09:00* Test Item Value Reference Range Comments STAIN ACCEPTABILITY (test code = STN ACCEPTABLE) STAIN ACCEPTABL E POLYCHROMASIA (test code = POLC) 1+ HYPOCHROMIA (test code = HYPO) 1+ BASOPHILIC STIPPLING (test code = STP) 1+ ANISOCYTOSIS (test code = ANISO) 1+ MACROCYTOSIS (test code = MACR) 1+ PLATELET ESTIMATE (test code = PLTEST) ADEQUATE PLATELET MORPHOLOGY (test code = PLTMORPH) NORMAL CBC W/AUTO [id number] 06:06:00* Test Item Value Reference Range Comments WHITE BLOOD CELL (test code = WBC) 10.2 K/mm3 4.5-12.5 RED BLOOD CELL (test code = RBC) 4.46 mill/mm3 4.0-5.8 HEMOGLOBIN (test code = HGB) 11.1 gram/dL 13.0-17.5 HEMATOCRIT (test code = HCT) 38.0 % 42.0-52.0 MEAN CELL VOLUME (test code = MCV) 85.2 fL 80-98 RESULT VERIFIED BY REPEAT ANALYSIS MEAN CELL HGB (test code = MCH) 24.9 picogram 27.0-33.0 MEAN CELL HGB CONCETRATION (test code = MCHC) 29.2 gram/dL 33 .0-36.0 RED CELL DISTRIBUTION WIDTH (test code = RDW) 19.1 % 11 .6-16.2 RED CELL DISTRIBUTION WIDTH SD (test code = RDW-SD) 56.5 fL 37.0-51.0 PLATELET COUNT (test code = PLT) 199 K/mm3 150-450 MEAN PLATELET VOLUME (test code = MPV) 10.3 fL 6.7-11.0 NEUTROPHIL % (test code = NT%) 62.4 % 39.0-69.0 IMMATURE GRANULOCYTE % (test code = IG%) 0.5 % 0.0-5.0 LYMPHOCYTE % (test code = LY%) 26.2 % 25.0-55.0 MONOCYTE % (test code = MO%) 8.7 % 0.0-10.0 EOSINOPHIL % (test code = EO%) 2.0 % 0.0-5.0 BASOPHIL % (test code = BA%) 0.2 % 0.0-1.0 NUCLEATED RBC % (test code = NRBC%) 0.4 % 0-0 NEUTROPHIL # (test code = NT#) 6.37 K/mm3 1.8-7.7 IMMATURE GRANULOCYTE # (test code = IG#) 0.05 x10 3/uL 0-0.03 LYMPHOCYTE # (test code = LY#) 2.68 K/mm3 1.0-5.0 MONOCYTE # (test code = MO#) 0.89 K/mm3 0-0.8 EOSINOPHIL # (test code = EO#) 0.20 K/mm3 0.0-0.5 BASOPHIL # (test code = BA#) 0.02 K/mm3 0.0-0.2 NUCLEATED RBC # (test code = NRBC#) 0.04 K/mm3 0.0-0.1 MANUAL DIFF REQUIRED (test code = MDIFF) NO, ONLY SCAN NEEDED DIFFERENTIAL [id number] 06:06:00* Test Item Value Reference Range Comments STAIN ACCEPTABILITY (test code = STN ACCEPTABLE) CABOT RINGS (test code = CAB) MORPHOLOGY COMMENT (test code = MOC) PLATELET ESTIMATE (test code = PLTEST) PLATELET MORPHOLOGY (test code = PLTMORPH) CBC W/AUTO [id number] 06:06:00* Test Item Value Reference Range Comments WHITE BLOOD CELL (test code = WBC) 10.2 K/mm3 4.5-12.5 RED BLOOD CELL (test code = RBC) 4.46 mill/mm3 4.0-5.8 HEMOGLOBIN (test code = HGB) 11.1 gram/dL 13.0-17.5 HEMATOCRIT (test code = HCT) 38.0 % 42.0-52.0 MEAN CELL VOLUME (test code = MCV) 85.2 fL 80-98 RESULT VERIFIED BY REPEAT ANALYSIS MEAN CELL HGB (test code = MCH) 24.9 picogram 27.0-33.0 MEAN CELL HGB CONCETRATION (test code = MCHC) 29.2 gram/dL 33 .0-36.0 RED CELL DISTRIBUTION WIDTH (test code = RDW) 19.1 % 11 .6-16.2 RED CELL DISTRIBUTION WIDTH SD (test code = RDW-SD) 56.5 fL 37.0-51.0 PLATELET COUNT (test code = PLT) 199 K/mm3 150-450 MEAN PLATELET VOLUME (test code = MPV) 10.3 fL 6.7-11.0 NEUTROPHIL % (test code = NT%) 62.4 % 39.0-69.0 IMMATURE GRANULOCYTE % (test code = IG%) 0.5 % 0.0-5.0 LYMPHOCYTE % (test code = LY%) 26.2 % 25.0-55.0 MONOCYTE % (test code = MO%) 8.7 % 0.0-10.0 EOSINOPHIL % (test code = EO%) 2.0 % 0.0-5.0 BASOPHIL % (test code = BA%) 0.2 % 0.0-1.0 NUCLEATED RBC % (test code = NRBC%) 0.4 % 0-0 NEUTROPHIL # (test code = NT#) 6.37 K/mm3 1.8-7.7 IMMATURE GRANULOCYTE # (test code = IG#) 0.05 x10 3/uL 0-0.03 LYMPHOCYTE # (test code = LY#) 2.68 K/mm3 1.0-5.0 MONOCYTE # (test code = MO#) 0.89 K/mm3 0-0.8 EOSINOPHIL # (test code = EO#) 0.20 K/mm3 0.0-0.5 BASOPHIL # (test code = BA#) 0.02 K/mm3 0.0-0.2 NUCLEATED RBC # (test code = NRBC#) 0.04 K/mm3 0.0-0.1 MANUAL DIFF REQUIRED (test code = MDIFF) NO, ONLY SCAN NEEDED DIFFERENTIAL [id number] 06:06:00* Test Item Value Reference Range Comments STAIN ACCEPTABILITY (test code = STN ACCEPTABLE) CABOT RINGS (test code = CAB) MORPHOLOGY COMMENT (test code = MOC) PLATELET ESTIMATE (test code = PLTEST) PLATELET MORPHOLOGY (test code = PLTMORPH) CBC W/AUTO [id number] 06:06:00* Test Item Value Reference Range Comments WHITE BLOOD CELL (test code = WBC) 10.2 K/mm3 4.5-12.5 RED BLOOD CELL (test code = RBC) 4.46 mill/mm3 4.0-5.8 HEMOGLOBIN (test code = HGB) 11.1 gram/dL 13.0-17.5 HEMATOCRIT (test code = HCT) 38.0 % 42.0-52.0 MEAN CELL VOLUME (test code = MCV) 85.2 fL 80-98 RESULT VERIFIED BY REPEAT ANALYSIS MEAN CELL HGB (test code = MCH) 24.9 picogram 27.0-33.0 MEAN CELL HGB CONCETRATION (test code = MCHC) 29.2 gram/dL 33 .0-36.0 RED CELL DISTRIBUTION WIDTH (test code = RDW) 19.1 % 11 .6-16.2 RED CELL DISTRIBUTION WIDTH SD (test code = RDW-SD) 56.5 fL 37.0-51.0 PLATELET COUNT (test code = PLT) 199 K/mm3 150-450 MEAN PLATELET VOLUME (test code = MPV) 10.3 fL 6.7-11.0 NEUTROPHIL % (test code = NT%) 62.4 % 39.0-69.0 IMMATURE GRANULOCYTE % (test code = IG%) 0.5 % 0.0-5.0 LYMPHOCYTE % (test code = LY%) 26.2 % 25.0-55.0 MONOCYTE % (test code = MO%) 8.7 % 0.0-10.0 EOSINOPHIL % (test code = EO%) 2.0 % 0.0-5.0 BASOPHIL % (test code = BA%) 0.2 % 0.0-1.0 NUCLEATED RBC % (test code = NRBC%) 0.4 % 0-0 NEUTROPHIL # (test code = NT#) 6.37 K/mm3 1.8-7.7 IMMATURE GRANULOCYTE # (test code = IG#) 0.05 x10 3/uL 0-0.03 LYMPHOCYTE # (test code = LY#) 2.68 K/mm3 1.0-5.0 MONOCYTE # (test code = MO#) 0.89 K/mm3 0-0.8 EOSINOPHIL # (test code = EO#) 0.20 K/mm3 0.0-0.5 BASOPHIL # (test code = BA#) 0.02 K/mm3 0.0-0.2 NUCLEATED RBC # (test code = NRBC#) 0.04 K/mm3 0.0-0.1 MANUAL DIFF REQUIRED (test code = MDIFF) NO, ONLY SCAN NEEDED DIFFERENTIAL [id number] 06:06:00* Test Item Value Reference Range Comments STAIN ACCEPTABILITY (test code = STN ACCEPTABLE) MORPHOLOGY COMMENT (test code = MOC) PLATELET ESTIMATE (test code = PLTEST) PLATELET MORPHOLOGY (test code = PLTMORPH) CBC W/AUTO [id number] 06:06:00* Test Item Value Reference Range Comments WHITE BLOOD CELL (test code = WBC) 10.2 K/mm3 4.5-12.5 RED BLOOD CELL (test code = RBC) 4.46 mill/mm3 4.0-5.8 HEMOGLOBIN (test code = HGB) 11.1 gram/dL 13.0-17.5 HEMATOCRIT (test code = HCT) 38.0 % 42.0-52.0 MEAN CELL VOLUME (test code = MCV) 85.2 fL 80-98 RESULT VERIFIED BY REPEAT ANALYSIS MEAN CELL HGB (test code = MCH) 24.9 picogram 27.0-33.0 MEAN CELL HGB CONCETRATION (test code = MCHC) 29.2 gram/dL 33 .0-36.0 RED CELL DISTRIBUTION WIDTH (test code = RDW) 19.1 % 11 .6-16.2 RED CELL DISTRIBUTION WIDTH SD (test code = RDW-SD) 56.5 fL 37.0-51.0 PLATELET COUNT (test code = PLT) 199 K/mm3 150-450 MEAN PLATELET VOLUME (test code = MPV) 10.3 fL 6.7-11.0 NEUTROPHIL % (test code = NT%) 62.4 % 39.0-69.0 IMMATURE GRANULOCYTE % (test code = IG%) 0.5 % 0.0-5.0 LYMPHOCYTE % (test code = LY%) 26.2 % 25.0-55.0 MONOCYTE % (test code = MO%) 8.7 % 0.0-10.0 EOSINOPHIL % (test code = EO%) 2.0 % 0.0-5.0 BASOPHIL % (test code = BA%) 0.2 % 0.0-1.0 NUCLEATED RBC % (test code = NRBC%) 0.4 % 0-0 NEUTROPHIL # (test code = NT#) 6.37 K/mm3 1.8-7.7 IMMATURE GRANULOCYTE # (test code = IG#) 0.05 x10 3/uL 0-0.03 LYMPHOCYTE # (test code = LY#) 2.68 K/mm3 1.0-5.0 MONOCYTE # (test code = MO#) 0.89 K/mm3 0-0.8 EOSINOPHIL # (test code = EO#) 0.20 K/mm3 0.0-0.5 BASOPHIL # (test code = BA#) 0.02 K/mm3 0.0-0.2 NUCLEATED RBC # (test code = NRBC#) 0.04 K/mm3 0.0-0.1 MANUAL DIFF REQUIRED (test code = MDIFF) NO, ONLY SCAN NEEDED DIFFERENTIAL [id number] 06:06:00* Test Item Value Reference Range Comments STAIN ACCEPTABILITY (test code = STN ACCEPTABLE) CABOT RINGS (test code = CAB) MORPHOLOGY COMMENT (test code = MOC) PLATELET ESTIMATE (test code = PLTEST) PLATELET MORPHOLOGY (test code = PLTMORPH) [id number] 04:36:00* Test Item Value Reference Range Comments TROPONIN-I (test code = TROPI) 0.224 ng/mL 0-0.045 COMMENTS TO CCTV TECHNICIAN: COLLECT 3 HOURS AFTER PREVIOUS [id number] 04:08:00* Test Item Value Reference Range Comments GLUBED (test code = GLUBED) 83 mg/dL 74-106 Perf ormed by certified tank wagon operator at [facility] [id number] 02:41:00* Test Item Value Reference Range Comments GLUBED (test code = GLUBED) 98 mg/dL 74-106 Perf ormed by certified tank wagon operator at [facility] [id number] 02:41:00* Test Item Value Reference Range Comments GLUBED (test code = GLUBED) 46 mg/dL 74-106 Perf ormed by certified tank wagon operator at [facility] [id number] 02:41:00* Test Item Value Reference Range Comments GLUBED (test code = GLUBED) 51 mg/dL 74-106 [facility]f ormed [facility] certified tank [facility] CRIT ILL ROBIN SPEC~ [id number] 01:41:00* Test Item Value Reference Range Comments GLUBED (test code = GLUBED) 23 mg/dL 74-106 Test performed as P.O.C. by nursing staff.Performed by certified [facility] Not[facility]~ - CT HEAD/BRAIN W/O [id number] 01:29:00 Name: LIAT KEYES [facility] : 1955 Age/S: 63 / M [address] [facility] Unit #: [id number] Loc: [place] [address] Phys: Lizzy Davis MD Acct: [id number] Dis Date: Status: ADM IN PHONE #: [phone] Exam Date: 11/08/2018 0126 FAX #: [phone] Reason: Altered Mental Status EXAMS: CPT CODE: [id number] CT HEAD/BRAIN W/O CONT 08209 AFTER HOURS SERVICE ON: 11/08/2018 1:[address] Scan of the Brain Without Contrast Location Code M12 History: Altered Mental Status Technique: Scans were performed on a helical scanner pre IV contrast only. The study is limited secondary to lack of intravenous contrast, particularly for evaluation of masses. One or more of the following dose reduction techniques were used: Automated exposure control, adjustment of the mA and/or kV according to patient size, and/or utilization of iterative reconstruction technique. Findings: There is no hydrocephalus. Basal cisterns are patent. There is no intracranial hy perdense hemorrhage. There is no midline shift or mass effect. No effaceme nt of the montalvo-white matter junction to indicate large territorial infarct ion. There are chronic ischemic white matter changes. Small lacunar infarc t noted in the left basal ganglia. The coastal thickening is present in t he paranasal sinuses as well as small air-fluid levels in the sphenoid sin uses. Impression: No intracranial hemorrhage o r midline shift. Small left basal ganglia lacunar infarct. Acu te on chronic sinusitis. at 0129 Reported and signed by: Dean Bryant M.D. CC: Roland Jacobson MD; Lizzy Davis MD Technologist:AGATA DIAZ SON CT CTDI: DLP: Trnscb Date/Time: 11/08/2018 (012 ) [email or web address] Orig Print D/T: S: 11/08/2018 (013) CT DI: DLP: PAGE 1 Signed Report [id number] 22:43:00* Test Item Value Reference Range Comments TROPONIN-I (test code = TROPI) 0.198 ng/mL 0-0.045 R ESULT VERIFIED BY REPEAT ANALYSIS COMMENTS TO CCTV TECHNICIAN: COLLECT 3 HOURS AFTER PREVIOUS SAMPLEPROCALCITONIN (PCT)2018-11-07 21:56:00* Test Item Value Reference Range Comments PROCALCITONIN (PCT) (test code = PROCAL) 0.12 ng/ml Concentration Interpretation (ng/mL) <0.51 Sepsis is not likely. Local bacterial infection is possible. (LOW RISK for progression to Sepsis) 0.51 - 2.00 Sepsis is possible, but other conditions are known to elevate PCT as well. (MODERATE RISK for progression to Sepsis) > 2.00 Sepsis is likely, unless other causes are known. (HIGH RISK for progression to Severe Sepsis or Septic Shock) 10.00 High likelihood of Severe Sepsis or Septic or higher Shock. *Increased PCT levels may not always be related to systemic bacterial infection.*Low PCT levels do not automatically exclude the presence of bacterial infection.*All results should be interpreted taking into account the patients history. CBC W/AUTO [id number] 16:36:00* Test Item Value Reference Range Comments WHITE BLOOD CELL (test code = WBC) 12.3 K/mm3 4.5-12.5 RED BLOOD CELL (test code = RBC) 5.00 mill/mm3 4.0-5.8 HEMOGLOBIN (test code = HGB) 12.0 gram/dL 13.0-17.5 HEMATOCRIT (test code = HCT) 46.2 % 42.0-52.0 MEAN CELL VOLUME (test code = MCV) 92.4 fL 80-98 MEAN CELL HGB (test code = MCH) 24.0 picogram 27.0-33.0 MEAN CELL HGB CONCETRATION (test code = MCHC) 26.0 gram/dL 33 .0-36.0 RED CELL DISTRIBUTION WIDTH (test code = RDW) 19.5 % 11 .6-16.2 RED CELL DISTRIBUTION WIDTH SD (test code = RDW-SD) 62.9 fL 37.0-51.0 PLATELET COUNT (test code = PLT) 246 K/mm3 150-450 MEAN PLATELET VOLUME (test code = MPV) 10.4 fL 6.7-11.0 NEUTROPHIL % (test code = NT%) 61.2 % 39.0-69.0 IMMATURE GRANULOCYTE % (test code = IG%) 0.8 % 0.0-5.0 LYMPHOCYTE % (test code = LY%) 28.8 % 25.0-55.0 MONOCYTE % (test code = MO%) 7.2 % 0.0-10.0 EOSINOPHIL % (test code = EO%) 1.7 % 0.0-5.0 BASOPHIL % (test code = BA%) 0.3 % 0.0-1.0 NUCLEATED RBC % (test code = NRBC%) 1.1 % 0-0 NEUTROPHIL # (test code = NT#) 7.52 K/mm3 1.8-7.7 IMMATURE GRANULOCYTE # (test code = IG#) 0.10 x10 3/uL 0-0.03 LYMPHOCYTE # (test code = LY#) 3.54 K/mm3 1.0-5.0 MONOCYTE # (test code = MO#) 0.89 K/mm3 0-0.8 EOSINOPHIL # (test code = EO#) 0.21 K/mm3 0.0-0.5 BASOPHIL # (test code = BA#) 0.04 K/mm3 0.0-0.2 NUCLEATED RBC # (test code = NRBC#) 0.14 K/mm3 0.0-0.1 MANUAL DIFF REQUIRED (test code = MDIFF) NO, ONLY SCAN NEEDED DIFFERENTIAL [id number] 16:36:00* Test Item Value Reference Range Comments STAIN ACCEPTABILITY (test code = STN ACCEPTABLE) STAIN ACCEPTABL E POLYCHROMASIA (test code = POLC) 1+ ANISOCYTOSIS (test code = ANISO) 1+ MICROCYTOSIS (test code = MICR) 1+ PLATELET ESTIMATE (test code = PLTEST) ADEQUATE PLATELET MORPHOLOGY (test code = PLTMORPH) NORMAL BASIC METABOLIC [id number] 16:19:00* Test Item Value Reference Range Comments SODIUM (test code = NA) 142 mmol/L 136-145 POTASSIUM (test code = K) 4.0 mmol/L 3.5-5.1 CHLORIDE (test code = CL) 102.0 mmol/L 98-107 CARBON DIOXIDE (test code = CO2) 36.0 mmol/L 21-32 ANION GAP (test code = GAP) 8.0 10-20 GLUCOSE (test code = GLU) 140 mg/dL 74-106 BLOOD UREA NITROGEN (test code = BUN) 36 mg/dL 7-18 GLOMERULAR FILTRATION RATE (test code = GFR) 34 mL/min >=6 0 Estimated GFR by using Modified MDRD formula.Chronic kidney disease is defined as either kidney damageor GFR <60 mL/min/1.73 m2 for >3 months. CREATININE (test code = CREAT) 2.00 mg/dL 0.7-1.3 BUN/CREATININE RATIO (test code = BUN/CREA) 18.0 10-2 0 CALCIUM (test code = CA) 8.4 mg/dL 8.5-10.1 HEPATIC FUNCTION [id number] 16:19:00* Test Item Value Reference Range Comments TOTAL PROTEIN (test code = PROT) 7.0 gram/dL 6.4-8.2 ALBUMIN (test code = ALB) 3.1 g/dL 3.4-5.0 GLOBULIN (test code = GLOB) 3.9 gram/dL 2.7-4.2 ALBUMIN/GLOBULIN RATIO (test code = A/G) 0.8 0.75-1. 50 BILIRUBIN TOTAL (test code = BILT) 0.30 mg/dL 0.0-1.0 BILIRUBIN DIRECT (test code = BILD) 0.12 mg/dL 0.0-0.20 SGOT/AST (test code = AST) 28 IUnit/L 15-37 SGPT/ALT (test code = ALT) 25 IUnit/L 12-78 ALKALINE PHOSPHATASE TOTAL (test code = ALKP) 79 IUnit/L 45 -117 Note change in reference range due to change in reagent. CREATINE KINASE (CK)2018-11-07 16:19:00* Test Item Value Reference Range Comments CREATINE KINASE (CK) (test code = CK) 437 IUnit/L 26-208 [id number] 16:19:00* Test Item Value Reference Range Comments LIPASE (test code = LIP) 124 U/L 73.0-393.0 THYROID STIMULATING [id number] 16:19:00* Test Item Value Reference Range Comments THYROID STIMULATING HORMONE (test code = TSH) 10.500 uIU/mL 0. 36-3.74 TSH REFERENCE RANGES: EUTHYROID: 0.35 - 4.3 mIU/mL HYPO : > 5.5 mIU/mL HYPER : < 0.35 mIU/mL [id number] 16:19:00* Test Item Value Reference Range Comments TROPONIN-I (test code = TROPI) 0.122 ng/mL 0-0.045 R esults called to [id number] by V.LAB.LT 11/07/18 1618Critical results verified and read back by Nurse? Y [id number] 16:19:00* Test Item Value Reference Range Comments ACETAMINOPHEN (test code = ACET) < 10 mcg/mL 10-30 A RANGE OF 10-30 mcg/mL IS A THERAPEUTIC RANGE. TOXIC CONCENTRATIONS: >150 mcg/mL AT 4 HOURS AFTER INGESTION >= 50 mcg/mL AT 12 HOURS AFTER INGESTION [id number] 16:19:00* Test Item Value Reference Range Comments SALICYLATE (test code = NESHA) < 1.7 mg/dL 2.8-20.0 [id number] 16:19:00* Test Item Value Reference Range Comments ALCOHOL (test code = ALC) < 3 mg/dL 0.0-3.0 ------ INTERPRETIVE DATA NOTE: POSITIVE SCREENING RESULTS SHOULD BE CONSIDERED PRESUMPTIVE.WHEN COLLECTED FOR MEDICAL PURPOSES ONLY. SPECIMEN WILL NOTBE COLLECTED BY CHAIN OF CUSTODY.IF A CONFIRMATION OF POSITIVE RESULTS IS DESIRED, ACONFIRMATION TEST MUST BE REQUESTED BY THE PHYSICIAN AT ANADDITIONAL CHARGE TO THE PATIENT. URINALYSIS [id number] 16:14:00* Test Item Value Reference Range Comments UA COLOR (test code = COLU) YELLOW YELLOW UA APPEARANCE (test code = APPU) SLIGHTLY CLOUDY CLEAR UA GLUCOSE DIPSTICK (test code = DGLUU) NEGATIVE mg/dL NEGATIVE UA BILIRUBIN DIPSTICK (test code = BILU) NEGATIVE mg/dL NEGATIV E UA KETONE DIPSTICK (test code = KETU) Negative mg/dL NEGATIVE UA SPECIFIC GRAVITY (test code = SGU) 1.018 1.001-1.03 5 UA BLOOD DIPSTICK (test code = DEAN) 1+ (Small) NEGATIVE UA PH DIPSTICK (test code = ZUHAIR) 5.0 5.0-8.0 UA PROTEIN DIPSTICK (test code = PROU) >500 (3+) mg/dL NEGATIVE UA UROBILINIOGEN DIPSTICK (test code = URO) NEGATIVE mg/dL NEGA TIVE UA NITRITE DIPSTICK (test code = DANIELA) NEGATIVE NEGATIVE UA LEUKOCYTE ESTERASE W REFLEX (test code = LEUUR) NEGATIVE NEGATIVE UA WBC (test code = WBCU) 0-5 #/HPF 0-5 UA RBC (test code = RBCU) 0-2 #/HPF 0-5 UA EPITHELIAL CELLS (test code = EPIU) None seen per HPF FEW UA BACTERIA (test code = BACU) NONE SEEN #/HPF NONE UA MUCUS (test code = MUCU) FEW #/LPF FEW Urine Source? Clean CatchDRUGS OF ABUSE SCREEN [id number] 16:14:00* Test Item Value Reference Range Comments URN COCAINE (test code = COCAURN) NEGATIVE <300 ng/mL URN CANNABINOIDS (test code = CANNABURN) NEGATIVE <50 ng/ mL URN AMPHETAMINE (test code = AMPHETURN) NEGATIVE <1000 ng /mL URN BARBITURATE (test code = BARBITURN) NEGATIVE <200 ng/ mL URN BENZODIAZEPINE (test code = BENZOURN) NEGATIVE <200 n g/mL URN OPIATES (test code = OPIATURN) NEGATIVE <300 ng/mL URN PHENCYCLIDINE (PCP) (test code = PHENCURN) NEGATIVE < 25 ng/mL URN METHADONE (test code = METHAURN) NEGATIVE <300 ng/mL Urine Source? Clean Catch- XR CHEST 1 [id number] 16:13:00 FAX: Roland Pinedo MD [phone] [place]: St: REG FAX: Lizzy Davis MD [phone] Name: LIAT KEYES [facility] : 1955 Age/S: 63/M [address] [facility] Unit #: [id number] Loc: [place] [address] Phys: Lizzy Davis MD Acct: [id number] Dis Date: Status: REG ER PHONE #: [phone] Exam Date: 11/07/2018 1606 FAX #: [phone] Reason: Altered Mental Status EXAMS: CPT CODE: [id number] XR CHEST 1 V 00664 HISTORY: Respiratory distress. COMPARISON: May 04, 2018. NG tube extends below the diaphragm. ET tube is at the gabriela which should be retracted 5 cm for better positioning. Right ce ntral line with the tip projected over the SVC. Mild congestion. Small b ibasal effusions. Dependent changes. Cardiomegaly. IMPRE SSION: ET tube at the gabriela which should be retracted 5 cm fo r better positioning. Mild congestion with small left effusion and biba nesha subsegmental atelectasis. at 2203 Reported and signed b y: Michael Franks M.D. CC: Roland Jacobson MD; Jeannette Davis MD Technologist: DANA PerdueR; ... Trnscrd Date/Time/By: 11/07/2018 (1746) : By: [email or web address] Orig Print D/T: S: 11/07/2018 (0930) PAGE 1 Signed Report URINALYSIS COMPLETE 2018-11-07 16:10:00* Test Item Value Reference Range Comments UA COLOR (test code = COLU) YELLOW YELLOW UA APPEARANCE (test code = APPU) SLIGHTLY CLOUDY CLEAR UA GLUCOSE DIPSTICK (test code = DGLUU) NEGATIVE mg/dL NEGATIVE UA BILIRUBIN DIPSTICK (test code = BILU) NEGATIVE mg/dL NEGATIV E UA KETONE DIPSTICK (test code = KETU) Negative mg/dL NEGATIVE UA SPECIFIC GRAVITY (test code = SGU) 1.018 1.001-1.03 5 UA BLOOD DIPSTICK (test code = DEAN) 1+ (Small) NEGATIVE UA PH DIPSTICK (test code = ZUHAIR) 5.0 5.0-8.0 UA PROTEIN DIPSTICK (test code = PROU) >500 (3+) mg/dL NEGATIVE UA UROBILINIOGEN DIPSTICK (test code = URO) NEGATIVE mg/dL NEGA TIVE UA NITRITE DIPSTICK (test code = DANIELA) NEGATIVE NEGATIVE UA LEUKOCYTE ESTERASE W REFLEX (test code = LEUUR) NEGATIVE NEGATIVE UA WBC (test code = WBCU) per HPF 0-5 Urine Source? Clean CatchDRUGS OF ABUSE SCREEN [id number] 16:10:00* Test Item Value Reference Range Comments URN COCAINE (test code = COCAURN) NEGATIVE <300 ng/mL URN CANNABINOIDS (test code = CANNABURN) NEGATIVE <50 ng/ mL URN AMPHETAMINE (test code = AMPHETURN) NEGATIVE <1000 ng /mL URN BARBITURATE (test code = BARBITURN) NEGATIVE <200 ng/ mL URN BENZODIAZEPINE (test code = BENZOURN) NEGATIVE <200 n g/mL URN OPIATES (test code = OPIATURN) NEGATIVE <300 ng/mL URN PHENCYCLIDINE (PCP) (test code = PHENCURN) NEGATIVE < 25 ng/mL URN METHADONE (test code = METHAURN) NEGATIVE <300 ng/mL Urine Source? Clean [id number] 15:56:00* Test Item Value Reference Range Comments AMMONIA (test code = AMM) 24 umol/L 11-32 PROTHROMBIN [id number] 15:55:00* Test Item Value Reference Range Comments PROTHROMBIN TIME PATIENT (test code = PTP) 13.3 seconds 9.0-1 4.0 INTERNATIONAL NORMAL RATIO (test code = INR) 1.1 0.8 -1.2 The therapeutic range for oral anticoagulant therapy formost indications is an international normalized ratio (INR)of between 2.0 and 3.0. The recommended therapeutic INRrange for various clinical situations is listed below: Clinical Situation INR range Pulmonary e mbolism treatment (2.0-3.0)Venous thrombosis treatmentVenous thrombosis prophylaxis (high risk surgery)Prevention of systemic embolism from: Acute myocardial infarction Valvular heart disease Atrial fibrillation Mechanical prosthetic heart valves (2.5-3.5) IS PATIENT ON ANTICOAGULANTS? NTHROMBOPLASTIN TIME [id number] 15:55:00* Test Item Value Reference Range Comments THROMBOPLASTIN TIME PARTIAL (test code = PTT) 30.6 seconds 25 .0-36.5 IS PATIENT ON ANTICOAGULANTS? NARTERIAL BLOOD [id number] 15:54:00* Test Item Value Reference Range Comments ARTERIAL BLOOD GAS PH (test code = PHA) 7.33 7.35-7.4 5 ARTERIAL BLOOD GAS PCO2 (test code = PCO2A) 59.3 mm Hg 35-4 5 ARTERIAL BLOOD GAS PO2 (test code = PO2A) 133.0 mmHg 80-100 BICARBONATE TOTAL HCO3 (test code = HCO3) 30.4 mmol/L 23.0-2 7.0 BASE EXCESS (test code = JENNIFER) 3.2 mmol/L -3.0-5.0 ABG O2 SATURATION (test code = SATA) 98.1 % 90.0-98.0 ABG TYPE (test code = TYPEA) Arterial FIO2 (test code = FIO2A) 70.0 ABG VENT MODE (test code = MODEA) Assist Control ABG VENT RESP RATE (test code = RRA) 18.0 per min ABG TIDAL VOLUME (test code = TVA) 550.0 mL ABG PEEP (test code = PEEPA) 5.0 cmH2O MODIFIED ALLENS (test code = MODALL) Unable CHECK PERFORMED HEMATOCRIT (test code = HCT/ABG) 36 % 42-52 TOTAL HGB (test code = THB) 12.1 gram/dL 13.0-17.5 HGB O2 SAT (test code = HBOSAT) 96.6 % 94.00-98.00 CARBOXYHEMOGLOBIN (test code = HOHGBT) 0.9 %totalHg 0.5-1.5 METHEMOGLOBIN (test code = METHGB) 0.6 % 0.0-1.50 O2 CONTENT (test code = O2CT) 16.7 % vol 18.0-22.0 URINALYSIS [id number] 15:53:00* Test Item Value Reference Range Comments UA COLOR (test code = COLU) YELLOW YELLOW UA APPEARANCE (test code = APPU) SLIGHTLY CLOUDY CLEAR UA GLUCOSE DIPSTICK (test code = DGLUU) NEGATIVE mg/dL NEGATIVE UA BILIRUBIN DIPSTICK (test code = BILU) NEGATIVE mg/dL NEGATIV E UA KETONE DIPSTICK (test code = KETU) Negative mg/dL NEGATIVE UA SPECIFIC GRAVITY (test code = SGU) 1.018 1.001-1.03 5 UA BLOOD DIPSTICK (test code = DEAN) 1+ (Small) NEGATIVE UA PH DIPSTICK (test code = ZUHAIR) 5.0 5.0-8.0 UA PROTEIN DIPSTICK (test code = PROU) >500 (3+) mg/dL NEGATIVE UA UROBILINIOGEN DIPSTICK (test code = URO) NEGATIVE mg/dL NEGA TIVE UA NITRITE DIPSTICK (test code = DANIELA) NEGATIVE NEGATIVE UA LEUKOCYTE ESTERASE W REFLEX (test code = LEUUR) NEGATIVE NEGATIVE UA WBC (test code = WBCU) per HPF 0-5 Urine Source? Clean CatchDRUGS OF ABUSE SCREEN [id number] 15:53:00* Test Item Value Reference Range Comments URN COCAINE (test code = COCAURN) <300 ng/mL URN CANNABINOIDS (test code = CANNABURN) <50 ng/ mL URN AMPHETAMINE (test code = AMPHETURN) <1000 ng /mL URN BARBITURATE (test code = BARBITURN) <200 ng/ mL URN BENZODIAZEPINE (test code = BENZOURN) <200 n g/mL URN OPIATES (test code = OPIATURN) <300 ng/mL URN PHENCYCLIDINE (PCP) (test code = PHENCURN) < 25 ng/mL URN METHADONE (test code = METHAURN) <300 ng/mL Urine Source? Clean CatchBASIC METABOLIC [id number] 15:51:00* Test Item Value Reference Range Comments SODIUM (test code = NA) 142 mmol/L 136-145 POTASSIUM (test code = K) 4.0 mmol/L 3.5-5.1 CHLORIDE (test code = CL) 102.0 mmol/L 98-107 CARBON DIOXIDE (test code = CO2) mmol/L 21-32 ANION GAP (test code = GAP) 10-20 GLUCOSE (test code = GLU) mg/dL 74-106 BLOOD UREA NITROGEN (test code = BUN) mg/dL 7-18 GLOMERULAR FILTRATION RATE (test code = GFR) mL/min >=6 0 CREATININE (test code = CREAT) mg/dL 0.7-1.3 BUN/CREATININE RATIO (test code = BUN/CREA) 10-2 0 CALCIUM (test code = CA) mg/dL 8.5-10.1 HEPATIC FUNCTION [id number] 15:51:00* Test Item Value Reference Range Comments TOTAL PROTEIN (test code = PROT) gram/dL 6.4-8.2 ALBUMIN (test code = ALB) g/dL 3.4-5.0 GLOBULIN (test code = GLOB) gram/dL 2.7-4.2 ALBUMIN/GLOBULIN RATIO (test code = A/G) 0.75-1. 50 BILIRUBIN TOTAL (test code = BILT) mg/dL 0.0-1.0 BILIRUBIN DIRECT (test code = BILD) mg/dL 0.0-0.20 SGOT/AST (test code = AST) IUnit/L 15-37 SGPT/ALT (test code = ALT) IUnit/L 12-78 ALKALINE PHOSPHATASE TOTAL (test code = ALKP) IUnit/L 45 -117 CREATINE KINASE (CK)2018-11-07 15:51:00* Test Item Value Reference Range Comments CREATINE KINASE (CK) (test code = CK) IUnit/L 26-208 [id number] 15:51:00* Test Item Value Reference Range Comments LIPASE (test code = LIP) U/L 73.0-393.0 THYROID STIMULATING [id number] 15:51:00* Test Item Value Reference Range Comments THYROID STIMULATING HORMONE (test code = TSH) uIU/mL 0. 36-3.74 [id number] 15:51:00* Test Item Value Reference Range Comments TROPONIN-I (test code = TROPI) ng/mL 0-0.045 [id number] 15:51:00* Test Item Value Reference Range Comments ACETAMINOPHEN (test code = ACET) mcg/mL 10-30 [id number] 15:51:00* Test Item Value Reference Range Comments SALICYLATE (test code = NESHA) mg/dL 2.8-20.0 [id number] 15:51:00* Test Item Value Reference Range Comments ALCOHOL (test code = ALC) mg/dL 0-3 CBC W/AUTO [id number] 15:45:00* Test Item Value Reference Range Comments WHITE BLOOD CELL (test code = WBC) 12.3 K/mm3 4.5-12.5 RED BLOOD CELL (test code = RBC) 5.00 mill/mm3 4.0-5.8 HEMOGLOBIN (test code = HGB) 12.0 gram/dL 13.0-17.5 HEMATOCRIT (test code = HCT) 46.2 % 42.0-52.0 MEAN CELL VOLUME (test code = MCV) 92.4 fL 80-98 MEAN CELL HGB (test code = MCH) 24.0 picogram 27.0-33.0 MEAN CELL HGB CONCETRATION (test code = MCHC) 26.0 gram/dL 33 .0-36.0 RED CELL DISTRIBUTION WIDTH (test code = RDW) 19.5 % 11 .6-16.2 RED CELL DISTRIBUTION WIDTH SD (test code = RDW-SD) 62.9 fL 37.0-51.0 PLATELET COUNT (test code = PLT) 246 K/mm3 150-450 MEAN PLATELET VOLUME (test code = MPV) 10.4 fL 6.7-11.0 NEUTROPHIL % (test code = NT%) 61.2 % 39.0-69.0 IMMATURE GRANULOCYTE % (test code = IG%) 0.8 % 0.0-5.0 LYMPHOCYTE % (test code = LY%) 28.8 % 25.0-55.0 MONOCYTE % (test code = MO%) 7.2 % 0.0-10.0 EOSINOPHIL % (test code = EO%) 1.7 % 0.0-5.0 BASOPHIL % (test code = BA%) 0.3 % 0.0-1.0 NUCLEATED RBC % (test code = NRBC%) 1.1 % 0-0 NEUTROPHIL # (test code = NT#) 7.52 K/mm3 1.8-7.7 IMMATURE GRANULOCYTE # (test code = IG#) 0.10 x10 3/uL 0-0.03 LYMPHOCYTE # (test code = LY#) 3.54 K/mm3 1.0-5.0 MONOCYTE # (test code = MO#) 0.89 K/mm3 0-0.8 EOSINOPHIL # (test code = EO#) 0.21 K/mm3 0.0-0.5 BASOPHIL # (test code = BA#) 0.04 K/mm3 0.0-0.2 NUCLEATED RBC # (test code = NRBC#) 0.14 K/mm3 0.0-0.1 MANUAL DIFF REQUIRED (test code = MDIFF) NO, ONLY SCAN NEEDED DIFFERENTIAL [id number] 15:45:00* Test Item Value Reference Range Comments STAIN ACCEPTABILITY (test code = STN ACCEPTABLE) CABOT RINGS (test code = CAB) MORPHOLOGY COMMENT (test code = MOC) PLATELET ESTIMATE (test code = PLTEST) PLATELET MORPHOLOGY (test code = PLTMORPH) CBC W/AUTO [id number] 15:45:00* Test Item Value Reference Range Comments WHITE BLOOD CELL (test code = WBC) 12.3 K/mm3 4.5-12.5 RED BLOOD CELL (test code = RBC) 5.00 mill/mm3 4.0-5.8 HEMOGLOBIN (test code = HGB) 12.0 gram/dL 13.0-17.5 HEMATOCRIT (test code = HCT) 46.2 % 42.0-52.0 MEAN CELL VOLUME (test code = MCV) 92.4 fL 80-98 MEAN CELL HGB (test code = MCH) 24.0 picogram 27.0-33.0 MEAN CELL HGB CONCETRATION (test code = MCHC) 26.0 gram/dL 33 .0-36.0 RED CELL DISTRIBUTION WIDTH (test code = RDW) 19.5 % 11 .6-16.2 RED CELL DISTRIBUTION WIDTH SD (test code = RDW-SD) 62.9 fL 37.0-51.0 PLATELET COUNT (test code = PLT) 246 K/mm3 150-450 MEAN PLATELET VOLUME (test code = MPV) 10.4 fL 6.7-11.0 NEUTROPHIL % (test code = NT%) 61.2 % 39.0-69.0 IMMATURE GRANULOCYTE % (test code = IG%) 0.8 % 0.0-5.0 LYMPHOCYTE % (test code = LY%) 28.8 % 25.0-55.0 MONOCYTE % (test code = MO%) 7.2 % 0.0-10.0 EOSINOPHIL % (test code = EO%) 1.7 % 0.0-5.0 BASOPHIL % (test code = BA%) 0.3 % 0.0-1.0 NUCLEATED RBC % (test code = NRBC%) 1.1 % 0-0 NEUTROPHIL # (test code = NT#) 7.52 K/mm3 1.8-7.7 IMMATURE GRANULOCYTE # (test code = IG#) 0.10 x10 3/uL 0-0.03 LYMPHOCYTE # (test code = LY#) 3.54 K/mm3 1.0-5.0 MONOCYTE # (test code = MO#) 0.89 K/mm3 0-0.8 EOSINOPHIL # (test code = EO#) 0.21 K/mm3 0.0-0.5 BASOPHIL # (test code = BA#) 0.04 K/mm3 0.0-0.2 NUCLEATED RBC # (test code = NRBC#) 0.14 K/mm3 0.0-0.1 MANUAL DIFF REQUIRED (test code = MDIFF) NO, ONLY SCAN NEEDED DIFFERENTIAL [id number] 15:45:00* Test Item Value Reference Range Comments STAIN ACCEPTABILITY (test code = STN ACCEPTABLE) CABOT RINGS (test code = CAB) MORPHOLOGY COMMENT (test code = MOC) PLATELET ESTIMATE (test code = PLTEST) PLATELET MORPHOLOGY (test code = PLTMORPH) CBC W/AUTO [id number] 15:45:00* Test Item Value Reference Range Comments WHITE BLOOD CELL (test code = WBC) 12.3 K/mm3 4.5-12.5 RED BLOOD CELL (test code = RBC) 5.00 mill/mm3 4.0-5.8 HEMOGLOBIN (test code = HGB) 12.0 gram/dL 13.0-17.5 HEMATOCRIT (test code = HCT) 46.2 % 42.0-52.0 MEAN CELL VOLUME (test code = MCV) 92.4 fL 80-98 MEAN CELL HGB (test code = MCH) 24.0 picogram 27.0-33.0 MEAN CELL HGB CONCETRATION (test code = MCHC) 26.0 gram/dL 33 .0-36.0 RED CELL DISTRIBUTION WIDTH (test code = RDW) 19.5 % 11 .6-16.2 RED CELL DISTRIBUTION WIDTH SD (test code = RDW-SD) 62.9 fL 37.0-51.0 PLATELET COUNT (test code = PLT) 246 K/mm3 150-450 MEAN PLATELET VOLUME (test code = MPV) 10.4 fL 6.7-11.0 NEUTROPHIL % (test code = NT%) 61.2 % 39.0-69.0 IMMATURE GRANULOCYTE % (test code = IG%) 0.8 % 0.0-5.0 LYMPHOCYTE % (test code = LY%) 28.8 % 25.0-55.0 MONOCYTE % (test code = MO%) 7.2 % 0.0-10.0 EOSINOPHIL % (test code = EO%) 1.7 % 0.0-5.0 BASOPHIL % (test code = BA%) 0.3 % 0.0-1.0 NUCLEATED RBC % (test code = NRBC%) 1.1 % 0-0 NEUTROPHIL # (test code = NT#) 7.52 K/mm3 1.8-7.7 IMMATURE GRANULOCYTE # (test code = IG#) 0.10 x10 3/uL 0-0.03 LYMPHOCYTE # (test code = LY#) 3.54 K/mm3 1.0-5.0 MONOCYTE # (test code = MO#) 0.89 K/mm3 0-0.8 EOSINOPHIL # (test code = EO#) 0.21 K/mm3 0.0-0.5 BASOPHIL # (test code = BA#) 0.04 K/mm3 0.0-0.2 NUCLEATED RBC # (test code = NRBC#) 0.14 K/mm3 0.0-0.1 MANUAL DIFF REQUIRED (test code = MDIFF) NO, ONLY SCAN NEEDED DIFFERENTIAL [id number] 15:45:00* Test Item Value Reference Range Comments STAIN ACCEPTABILITY (test code = STN ACCEPTABLE) MORPHOLOGY COMMENT (test code = MOC) PLATELET ESTIMATE (test code = PLTEST) PLATELET MORPHOLOGY (test code = PLTMORPH) CBC W/AUTO [id number] 15:45:00* Test Item Value Reference Range Comments WHITE BLOOD CELL (test code = WBC) 12.3 K/mm3 4.5-12.5 RED BLOOD CELL (test code = RBC) 5.00 mill/mm3 4.0-5.8 HEMOGLOBIN (test code = HGB) 12.0 gram/dL 13.0-17.5 HEMATOCRIT (test code = HCT) 46.2 % 42.0-52.0 MEAN CELL VOLUME (test code = MCV) 92.4 fL 80-98 MEAN CELL HGB (test code = MCH) 24.0 picogram 27.0-33.0 MEAN CELL HGB CONCETRATION (test code = MCHC) 26.0 gram/dL 33 .0-36.0 RED CELL DISTRIBUTION WIDTH (test code = RDW) 19.5 % 11 .6-16.2 RED CELL DISTRIBUTION WIDTH SD (test code = RDW-SD) 62.9 fL 37.0-51.0 PLATELET COUNT (test code = PLT) 246 K/mm3 150-450 MEAN PLATELET VOLUME (test code = MPV) 10.4 fL 6.7-11.0 NEUTROPHIL % (test code = NT%) 61.2 % 39.0-69.0 IMMATURE GRANULOCYTE % (test code = IG%) 0.8 % 0.0-5.0 LYMPHOCYTE % (test code = LY%) 28.8 % 25.0-55.0 MONOCYTE % (test code = MO%) 7.2 % 0.0-10.0 EOSINOPHIL % (test code = EO%) 1.7 % 0.0-5.0 BASOPHIL % (test code = BA%) 0.3 % 0.0-1.0 NUCLEATED RBC % (test code = NRBC%) 1.1 % 0-0 NEUTROPHIL # (test code = NT#) 7.52 K/mm3 1.8-7.7 IMMATURE GRANULOCYTE # (test code = IG#) 0.10 x10 3/uL 0-0.03 LYMPHOCYTE # (test code = LY#) 3.54 K/mm3 1.0-5.0 MONOCYTE # (test code = MO#) 0.89 K/mm3 0-0.8 EOSINOPHIL # (test code = EO#) 0.21 K/mm3 0.0-0.5 BASOPHIL # (test code = BA#) 0.04 K/mm3 0.0-0.2 NUCLEATED RBC # (test code = NRBC#) 0.14 K/mm3 0.0-0.1 MANUAL DIFF REQUIRED (test code = MDIFF) NO, ONLY SCAN NEEDED DIFFERENTIAL [id number] 15:45:00* Test Item Value Reference Range Comments STAIN ACCEPTABILITY (test code = STN ACCEPTABLE) CABOT RINGS (test code = CAB) MORPHOLOGY COMMENT (test code = MOC) PLATELET ESTIMATE (test code = PLTEST) PLATELET MORPHOLOGY (test code = PLTMORPH) CBC W/AUTO [id number] 15:42:00* Test Item Value Reference Range Comments WHITE BLOOD CELL (test code = WBC) K/mm3 4.5-12.5 RED BLOOD CELL (test code = RBC) mill/mm3 4.0-5.8 HEMOGLOBIN (test code = HGB) gram/dL 13.0-17.5 HEMATOCRIT (test code = HCT) 46.2 % 42.0-52.0 MEAN CELL VOLUME (test code = MCV) fL 80-98 MEAN CELL HGB (test code = MCH) picogram 27.0-33.0 MEAN CELL HGB CONCETRATION (test code = MCHC) gram/dL 33 .0-36.0 RED CELL DISTRIBUTION WIDTH (test code = RDW) % 11 .6-16.2 RED CELL DISTRIBUTION WIDTH SD (test code = RDW-SD) fL 37.0-51.0 PLATELET COUNT (test code = PLT) K/mm3 150-450 MEAN PLATELET VOLUME (test code = MPV) fL 6.7-11.0 NEUTROPHIL % (test code = NT%) % 39.0-69.0 IMMATURE GRANULOCYTE % (test code = IG%) % 0.0-5.0 LYMPHOCYTE % (test code = LY%) % 25.0-55.0 MONOCYTE % (test code = MO%) % 0.0-10.0 EOSINOPHIL % (test code = EO%) % 0.0-5.0 BASOPHIL % (test code = BA%) % 0.0-1.0 NEUTROPHIL # (test code = NT#) K/mm3 1.8-7.7 LYMPHOCYTE # (test code = LY#) K/mm3 1.0-5.0 MONOCYTE # (test code = MO#) K/mm3 0-0.8 EOSINOPHIL # (test code = EO#) K/mm3 0.0-0.5 BASOPHIL # (test code = BA#) K/mm3 0.0-0.2 TROPONIN I [id number] 15:30:00* Test Item Value Reference Range Comments TROPONIN I RAPID (test code = TROPIRAP) 0.10 ng/mL <0.08 Please Note New Reference Range 0.00-0.079 ng/mL - Negative>or= 0.08 ng/mL - Positive The use of serial sampling and testing protocol is arecommended practice.An elevated troponin level alone is often not sufficient fordiagnosis of myocardial infarction. Troponin results obtained by different assays may vary.Evaluation of the extent of myocardial damage based onincrease of troponin would be valid only if similarmethodology is used. POC LACTIC [id number] 15:24:00* Test Item Value Reference Range Comments POC LACTIC ACID (test code = POCLAC) 1.00 MMOL/L 0.4-2.2
[2019-12-19] MEDS ORDERED: ASPIRIN 81 MG CHEW TAB PO ONE (11:45)
[2019-12-19] MEDS ORDERED: VANCOMYCIN 1GM/NS 250 ML 250 ML IV STA (11:53)
[2019-12-19 12:24] LABS: BASOPHILS % 0.3 % (0.0-1.0); EOSINOPHILS # (AUTO) 0.4 (0.0-0.4); EOSINOPHILS % 4.7 % (0.0-6.0); HEMATOCRIT 45.8 % (38.2-49.6); HEMOGLOBIN 14.1 g/dL (14.0-18.0); LYMPHOCYTES # (AUTO) 2.2 (1.0-3.2); MEAN CORPUSCULAR HGB CONC 30.8 g/dL (31-35); MEAN CORPUSCULAR VOLUME 94.2 fL (81-99); MONOCYTES # (AUTO) 0.8 (0.2-0.8); MONOCYTES % 8.8 % (4.4-11.3); NEUTROPHILS # (AUTO) 5.9 (2.1-6.9); NEUTROPHILS % 62.9 % (38.7-80.0); PLATELET COUNT 254 x10e3/uL (140-360); RED BLOOD COUNT 4.86 x10e6/uL (4.3-5.7); RED CELL DISTRIBUTION WIDTH 13.7 % (11.7-14.4)
[2019-12-19 12:48] LABS: CREATINE KINASE 363 IU/L (30-200)
== END 2019-12-19 16:24 | disposition home or self-care (01) ==
LOC: ER 11:28
DX: M25.571 Pain in right ankle and joints of right foot (principal); L03.115 Cellulitis of right lower limb; L03.116 Cellulitis of left lower limb; M79.89 Other specified soft tissue disorders
CPT/HCPCS: 36415; 82550; 82553; 83880; 84484; 85025; 93005; 93970; 99284; J3370